=== PATIENT | female | born 1940 | race Caucasian/White ===

== ENCOUNTER 2023-08-25 06:26 | Inpatient (IN) | payer MEDICARE, SELFPAY ==
--- NOTE | 2023-07-21 10:01 | CM ---
Patient is scheduled for an elective R TKR on 08/25/23. Spoke with patient and her daughter prior to surgery via telephone. Introduced role of Orthopedic Navigator. Patient reports that she lives alone in a one story home. There are two steps to
enter. She currently functions independently and uses a rolling walker. She has no other DME and has never had VN services.
Discussed orthopedic program and post surgical plans. Reviewed anticipated length of stay and that goal is for her to return home at discharge. Patient's daughter states that she will stay with patient for as long as needed. Patient will need VN
services at discharge. Options and PAC data reviewed; patient selects [facility].
Patient will complete online education.
Plan: Orthopedic Navigator will remain available to assist with the care of patient and will reassess discharge needs after surgery.
[2023-08-05 13:07] VITALS: BMI 24.9
[2023-08-05 14:06] LABS: Hematocrit 41.9 % (37.0-47.0); Hemoglobin 13.9 g/dL (12.0-16.0); Mean Corp Hgb Conc. 33.2 g/dL (33.0-37.0); Mean Corpuscular Hgb 30.3 pg (27.0-31.0); Mean Corpuscular Volume 91.5 fL (81.0-99.0); Mean Platelet Volume 12.8 fL (7.4-10.4); Platelet Count 248 10^3/uL (130-400); Red Blood Cell Count 4.58 10^6/uL (4.20-5.40); Red Cell Dist. Width 14.6 % (11.5-14.5); White Blood Cell Count 6.7 10^3/uL (4.8-10.8)
[2023-08-05 14:18] LABS: ALT (SGPT) 12 U/L (0-35); AST (SGOT) 22 U/L (14-36); Albumin 4.7 g/dl (3.5-5.0); Alkaline Phosphatase 118 U/L (38-126); Blood Urea Nitrogen 15 mg/dl (7-17); Calcium 9.8 mg/dl (8.4-10.2); Carbon Dioxide 26 mmol/L (22-30); Chloride 102 mmol/L (98-107); Estimated Creatinine Clearance 48 ml/min; Glucose 92 mg/dl (70-99); Potassium 4.3 mmol/L (3.5-5.1); Sodium 139 mmol/L (135-145); Total Bilirubin 1.1 mg/dl (0.2-1.3); Total Protein 7.6 g/dl (6.3-8.2); eGFR > 60.00
[2023-08-05 15:17] VITALS: BMI 24.9
[2023-08-05 17:18] LABS: Free T4 0.77 ng/dl (0.78-2.19)
[2023-08-06 09:31] LABS: Glycohemoglobin (HgbA1c) 5.7 % (4.0-5.6)
[2023-08-25] VITALS (10 sets, daily range): BP systolic 134–209; BP diastolic 58–98; BMI 24.9
[2023-08-25] MEDS: TYLENOL 650 MG PO ×3 (10:47→19:46)
[2023-08-25] MEDS: CELEBREX 200 MG PO (10:55)
--- NOTE | 2023-08-25 11:22 | PTCARENOTE ---
Patients BP on arrival was 209/98. Per the [facility] & P patient was to start Lisinopril. Patient states that she told her pharmacy that she only wanted to fill the Mupirocin and had them put the Lisinopril prescription back. Dr. Estrada notified. Patient and
her daughter stated that the prescription was given by Dr. Sumaya Salgado at and [facility]. Dr. Collins also notified of patients BP and told him that Dr. Estrada would be notified also.
[2023-08-25] MEDS: NORMOSOL-R 1000 IV ×2 (11:32→16:20)
--- NOTE | 2023-08-25 12:28 | W.PN.UPDATE ---
Update Note
Progress Note Update
R knee OA s/p R TKA w/ Dr Jacques 08/25/23
DVT prophylaxis - Eliquis 2.5 mg PO BID x4 weeks (d/t ADR to Aspirin), b/l venous foot pumps
- Alternative: low dose enteric coated ASA w/ daily PPI should Eliquis be costly
HTN - labile pre-op d/t h/o medical non-compliance (was told by PCP to start Lisinopril daily and failed to do so)
- Start Lisinopril
- Will order Hydralazine for SBP >165 prn
- Ensure adequate pain control
- Monitor
GERD - add Pepcid HS
Hypothyroidism, asymptomatic - will start Levothyroxine post-op
Hypercholesterolemia, statin intolerant
Irritable bowel syndrome
Lactose intolerance
Glaucoma
Poor historian
Medical non-compliance
Prediabetes, A1c 5.7
Remote history of tobacco abuse
Due to her h/o medical non-compliance, the pt is considered to be at an increased risk of post-op infection. She will be prescribed Cefadroxil 500 mg PO BID upon d/c x1 week.
--- NOTE | 2023-08-25 15:55 | OR.RPT ---
Operative Report
Operative Report
Orthopaedic Surgery Operative Note
DATE OF OPERATION: 08/25/2023
PREOPERATIVE DIAGNOSES: Osteoarthritis, right knee.
POSTOPERATIVE DIAGNOSES: Osteoarthritis, right knee.
OPERATION PERFORMED: Right total knee arthroplasty (65281 with 22 modifier for complexity)
SURGEON: Tong Jacques MD
ASSISTANTS: Luis E Nicole who helped with patient and limb positioning and retraction
ANESTHESIA: General
COMPLICATIONS: None.
ESTIMATED BLOOD LOSS: 20mL
DRAINS: None
TOURNIQUET TIME: 61 minutes.
IMPLANTS:
- Haylee Persona PS Femur, size 9
- Haylee Persona tibia base plate, size E
- Haylee Persona short tibial stem, 30mm
- Haylee Persona CPS articular surface, 10 mm
- All-polyethylene patellar component, size 29
INDICATIONS: The patient presented to my office with debilitating right knee pain due to osteoarthritis. She had marked fixed varus deformity. We reviewed the natural history of this problem, as well as the risks, benefits, and alternatives of
various treatment options. The patient exhausted all nonoperative treatment options and wished to proceed with knee replacement surgery. The patient understood the risks which included, but were not limited to, bleeding, infection, failure to
relieve pain, more pain than preop, damage to blood vessels and nerves, need for reoperation, mechanical failure of the implants, wound healing problems, stiffness, instability, blood clot, pulmonary embolism, myocardial infarction, pneumonia,
arrhythmia, CVA, and . The patient accepted these risks and wished to proceed. All questions were answered, and informed consent was obtained.
PROCEDURE IN DETAIL: The patient was identified in the preoperative holding area. The right knee was identified as the operative site. The patient was taken in the operating room and placed in a supine position on the operating table. General
anesthesia was performed. IV antibiotics and tranexamic acid were administered. An SCD was placed on the left lower extremity. A well-padded tourniquet was placed on the proximal thigh. All bony prominences were well padded. The right lower
extremity was prepped and draped in the usual sterile fashion.
We performed a surgical time-out. An interarticular block was performed with local anesthetic with epinephrine. The limb was exsanguinated with an Esmarch bandage, then the tourniquet was inflated to 250 mmHg. A midline skin incision was made
followed by a medial parapatellar arthrotomy. A subperiosteal peel was performed on the medial tibia. I excised part of the infrapatellar fat pad to improve our visualization as well as tissue over anterior femur. The patella was everted and the
knee was flexed. I excised the remnants of the anterior and posterior cruciate ligaments as well as tibial and femoral osteophytes with rongeurs.
The knee was flexed, and the extramedullary tibial cutting guide was aligned. [place] was aligned at neutral, rotation was centered on the tibial tubercle, and coronal alignment was aligned with the mechanical axis of the tibia and center of the ankle
joint. The cut height was 2mm off the medial tibia joint surface. The guide was secured into place. The MCL and LCL were protected. The tibia surface was cut. The cut surface was inspected after removal to ensure appropriate height and slope based
on the preoperative plan. The cut was checked with a drop yecenia. It was centered nicely at the ankle.
A drill was used to open the femoral canal. The intramedullary distal femoral cutting guide was inserted into the femur. This was set at 5 degrees +0. This was secured into place with three pins. The cut level was checked with an meek wing. The
distal femur was cut through the cutting guide. The IM guide was reinserted to double check that the level of resection was flush and in appropriate alignment.
Aure�s line and the transepicondylar axis were marked on the femur. The femoral sizing guide was applied to the anterior femur. Pins were inserted, and the 4-in-1 cutting guide was applied and secured into place. The rotation was compared to
[place]�s line, the transepicondylar axis, and the neutral tibia cut and was found to be appropriate. The width was checked and found to be appropriate and lateralized on the femur. The anterior, posterior, and chamfur cuts were made. A lamina
mapping analyst was used to open the flexion gap, and posterior osteophytes were removed with a curved osteotome. The remnant medial and lateral meniscus were also removed. I prophylactically cauterized the lateral geniculate arteries.
A 10mm spacer block was applied to the flexion and extension gaps. The knee was markedly tight medially in both flexion and extension. There was downsloaping deformity to the proximal tibia medially from chronic varus remodeling. This section was
identified, and a medial tibial subtraction osteotomy was performed with a reciprocating saw. The MCL was protected with a Z retractor. Medial femoral osteophyte was removed from the medial femur as well. Once this was performed, the 10mmm spacer
block was reinserted. The knee was noted to be balanced medially and laterally. The knee was extended, and the block showed symmetric to extension and flexion gaps.
The tibia was exposed and sized. Rotation was set in line with the tibial tubercle and congruent with the femur. The trial was secured into place with two pins. The trial femur was impacted into place, and a trial articular surface was placed. The
knee was taken through range of motion and noted to be stable throughout the arc of motion without gaping or excess tension. In extension, a measured resection of the patella was performed. The patella was sized, and lug holes were drilled. A trial
patella component was applied, and it was noted to track centrally throughout the arc of motion without need for further releases.
The trials were removed. There was a contained synovial cyst in the posterior central aspect of the proximal tibia which was debrided. The tibia keel was prepared with the punch and the drill. The bone surfaces were irrigated with sterile saline and
dried. The cement was mixed in a vacuum mixer. Cement gun was used to apply cement to the tibial surface and the undersurface of the tibial implant. Cement was pressurized into the tibial canal and tibia surface. The tibial component was impacted
into place. Excess cement was removed. Cement was applied to the femoral surface and the femoral component. The femoral component was impacted into place, and excess cement removed. A trial articular surface was inserted, and the knee was extended
while the cement polymerized. The tourniquet was let down, and meticulous hemostasis was achieved. Dilute betadine was poured into the wound and allowed to soak for 3 minutes. The knee was irrigated with copious normal saline.
Once the cement was polymerized, the trial articular surface was removed. Any excess cement was removed. The knee was trialed, and the final articular surface was selected and inserted into the tibial locking mechanism. The knee was reduced. A fresh
drape was applied to the surgical field.
The arthrotomy was closed with 0-PDS. Once closed, an interarticular block was performed with local anesthetic with epi. The deep dermal layer was closed with 2-0 PDS, and the subcuticular skin was closed with 3-0 monocryl. A Dermabond Prineo
dressing was applied to the skin in full flexion. Once this was completely dry, a sterile waterproof dressing was applied.
The anesthesia team performed an adductor canal block in the OR. The patient awoke from anesthesia without any difficulties. The sponge and instrument counts were correct x2 at the end of the case.
Of note, 22 modifier was added for complexity due to the extreme coronoal deformity requiring 20 additional minutes for tibial osteotomy and extensive soft tissue releases to achieve balanced gaps
Jerson Jacques MD
[2023-08-25] MEDS: ROXICODONE 5 MG PO (16:20)
--- NOTE | 2023-08-25 17:20 | PTCARENOTE ---
Pt received from the PACU via bed. Transport was w/o incident. Pt is aaox3, HRR, lungs are decreased in the bases/clear, resp. easy. Pt with Silver Mepilex drsg to Right knee C/D/I, no drainage noted. Pt's VSS, Pt is afebrile. Pt instructed on plan
of care. Pt verbalized understanding of instructions. Call lyons is within reach.
[2023-08-25] MEDS: ZESTRIL 10 MG PO (18:00)
[2023-08-25] MEDS: ANCEF 5 IV (19:45)
[2023-08-25] MEDS: BACTROBAN 2% OINTMENT 1 APPLIC NASAL (19:45)
[2023-08-25] MEDS: SENOKOT 17.1999999999999993 MG PO (19:46)
[2023-08-25] MEDS: COLACE 100 MG PO (19:46)
[2023-08-25] MEDS: ELIQUIS 2.5 MG PO (19:46)
[2023-08-25] MEDS: PEPCID 20 MG PO (22:31)
[2023-08-25] MEDS: TYLENOL PO (23:38)
[2023-08-26 03:40] VITALS: BP 149/72
[2023-08-26] MEDS: TYLENOL PO ×3 (03:40→09:29)
[2023-08-26] MEDS: ANCEF 5 IV (03:42)
[2023-08-26] MEDS: DILAUDID IV (04:35)
[2023-08-26] MEDS: DILAUDID 0.5 MG IV (04:52)
[2023-08-26] MEDS: ATIVAN 2 MG SL (05:56)
--- NOTE | 2023-08-26 06:18 | PTCARENOTE ---
pt has saji forgettful and confused but woke up at 0430 very confused, agitated, paranoid, and combative. pt was trying to get OOB w/ foot pumps on. she would not listen to redirection but this RN or PCT. pt was yelling that 'we are trying to kill
her', and something 'about the garage and needing to get an substation electrician' pt started to hit and kick. bending her surgical leg and trying to kick this nurse in the head.
Informed BRUNILDA uriarte'alexandru orders for restraints. See MAR re: pain management
Informed Dr. Wilhelm obtain order for ativan for increased agitation w/ some effect.
[2023-08-26 07:10] VITALS: BP 105/63
[2023-08-26 08:29] LABS: Hematocrit 33.1 % (37.0-47.0); Mean Corp Hgb Conc. 33.2 g/dL (33.0-37.0); Mean Corpuscular Hgb 30.8 pg (27.0-31.0); Mean Corpuscular Volume 92.7 fL (81.0-99.0); Mean Platelet Volume 12.4 fL (7.4-10.4); Platelet Count 219 10^3/uL (130-400); Red Blood Cell Count 3.57 10^6/uL (4.20-5.40); White Blood Cell Count 14.8 10^3/uL (4.8-10.8)
[2023-08-26 08:44] LABS: Blood Urea Nitrogen 14 mg/dl (7-17); Calcium 9.4 mg/dl (8.4-10.2); Carbon Dioxide 24 mmol/L (22-30); Chloride 99 mmol/L (98-107); Estimated Creatinine Clearance 31 ml/min; Glucose 123 mg/dl (70-99); Potassium 3.8 mmol/L (3.5-5.1); Sodium 135 mmol/L (135-145); eGFR 49.86
[2023-08-26] MEDS: COLACE PO ×3 (09:25→19:52)
[2023-08-26] MEDS: SENOKOT PO ×3 (09:25→19:52)
[2023-08-26] MEDS: SYNTHROID PO ×2 (09:28→09:38)
[2023-08-26] MEDS: BACTROBAN 2% OINTMENT 1 APPLIC NASAL (09:29)
[2023-08-26] MEDS: ELIQUIS 2.5 MG PO (09:30)
[2023-08-26] MEDS: ZESTRIL PO (09:31)
[2023-08-26] MEDS: NSS 500 IV (09:32)
--- NOTE | 2023-08-26 11:19 | CM ---
Addendum entered by Cindy Joyce 08/26/23 15:04:
[facility] and [facility] are both able to offer a bed on Tuesday if patient is cleared for discharge and needs SNF.
Original Note:
Reviewed chart and held rounds with PT, OT and nursing. Patient admitted as planned for elective R TKR. Patient has been confused and agitated. Met with patient's daughter at bedside. Confirmed information previously obtained for assessment. Also
discussed discharge plans. Daughter states that her plan continues to be for patient to return home at discharge. She will stay with her for as long as needed. She is concerned though about patient's mental state and her ability to bring patient
home if she isn't at her baseline mentally and functionally at a level she can safely assist. Discussed option of SNF rehab if patient isn't able to return home and reviewed options and PAC data. She requested referrals to SNFs local to [place].
If able to go home, patient will need VN services. Reviewed start of care (currently 08/27), services to be ordered (PT, SN) and frequency/duration of services. Options list provided and PAC data reviewed. She selects VN.
Patient has a rolling walker at home.
Referral and completed PASRR were sent to [facility], [facility] and [facility] through [employer]
VN referral was completed and sent to [facility] through [employer] with request for start of care on 08/27. Confirmation received of their ability to accept case. meat counter clerk to fax discharge instructions to [facility] if patient goes home.
--- NOTE | 2023-08-26 11:38 | CON.HOSP ---
Family Physician
-
Family Physician: Sumaya Salgado MD,
Chief Complaint
-
Confusion postop
History of Present Illness
83 years old female was admitted for elective right knee surgical revision by orthopedic doctor. She underwent the procedure without complication and later developed delirium/confusion. Patient pulled her IV access and she refused to take her oral
medications. He was placed on restraint because she was trying to leave the bed.
I saw the patient in the room, she was confused, she was answering questions in noncoherent way. She could not follow commands. She had bilateral wrist restraint and 1 like restraint and despite that she was trying to leave the bed.
No fever. No pain issue. She was given narcotic yesterday postoperatively. Positive underlying history of mild cognitive impairment.
Medical History
Past Medical History
Past Medical History: Reports Other (According to records, hypothyroidism, hypertension)
Past Surgical History: Reports Other (No recent major abdominal surgery)
Social History
Unable to obtain full social history at this time due to: Dementia and Other (Confusion)
Family History
Family History: Unable to Obtain (Due to confusion)
Allergies / Home Medications
Allergies reflects when Allergies were last updated in [facility].
Home Medications with original date entered in [facility]
Allergy/Medication List:
Allergies
Allergy/AdvReac Type Severity Reaction Status Date / Time
lactose Allergy Nausea Verified 08/25/23 10:33
aspirin AdvReac Stomach Verified 08/25/23 10:33
Pain,
Heartburn
Home Medications
mupirocin 2 % topical ointment 1 applic intranasal BID #1 tube 08/05/23
Review of Systems
-
Unable to obtain full review of systems at this time due to: Dementia and Other (Confusion)
Physical Exam
Vital Signs
Vital Signs
Temp Pulse Resp BP Pulse Ox
98.4 F 106 18 105/63 95
08/26/23 07:10 08/26/23 07:10 08/26/23 07:10 08/26/23 07:10 08/26/23 07:10
Physical Exam
General: Other (Patient is restless in bed with restraints)
HEENT: Atraumatic
Respiratory: Clear
Cardiac: S1/S2 and Regular Rhythm
GI: Non Tender
Rectal: Negative Maroon Stools
Genito-urinary: Clear Urine
Musculoskeletal: No Edema
Skin: Negative Jaundice
Neuro: Other (Patient is disoriented, did not follow commands, not coherent sentences)
Psych: Agitated
Laboratory Results
-
Laboratory Results
08/26/23 08:15
08/26/23 08:15
Total Bilirubin 1.1 mg/dl (0.2-1.3) 08/05/23 11:49
AST 22 U/L (14-36) 08/05/23 11:49
ALT 12 U/L (0-35) 08/05/23 11:49
Alkaline Phosphatase 118 U/L (38-126) 08/05/23 11:49
Impression / Plan
-
IMPRESSION:
83 years old female presented for elective orthopedic surgery and became delirious after surgery
# Acute change in mental status
Acute delirium, possibly related to pain medication
Underlying mild cognitive impairment
Continue supportive care, restraint for protective measures
IV fluid
Aspiration precaution
Avoid opioids if possible
Control pain with Tylenol, if unable to take orally we can try rectal Tylenol
No signs of acute infection. No fevers.
Moving aimlessly in bed
Head the scan showed no acute intracranial abnormality but positive for age-related changes
Positive leukocytosis which could be reactive, will check urinalysis
#Severe right knee osteoarthritis, started post right total knee arthroplasty by Dr. Jacques on 08/24
No complications reported during surgery
Unable to take oral
Replace DVT prophylaxis with SQ Lovenox for now
# Acute kidney injury, creatinine 1.1. Baseline 0.7 in July 2023
Give IV fluid
Monitor for retention
# Primary hypertension. Unable to take lisinopril. Will replace IV hydralazine as needed
# Hypothyroidism, no changes intended
# CODE STATUS, DNR per living will, confirmed with daughter
Thank you for your consultation, we will follow the patient along with you
Total time spent to see the patient, examine the patient on the floor, review data and lab results, discuss treatment plan with patient, orthopedic doctor, nursing staff around 75 minutes.
[2023-08-26 12:05] VITALS: BP 158/67
--- NOTE | 2023-08-26 13:00 | W.PN.ORTHO ---
Today's Communication / Plan
-
Monitor cognition and agitation.
Await further recs from hospitalist service.
Work w/ PT and OT as able.
D/c when clinically stable.
Assessment
.
Distal Motor Intact: Yes
Dressing:
Clean, dry and intact.
Assessment:
R knee OA s/p R TKA w/ Dr Jacques 08/25/23
DVT prophylaxis - Eliquis 2.5 mg PO BID x4 weeks (d/t ADR to Aspirin), b/l venous foot pumps
- Pt's daughter to receive coupon for Eliquis
Confusion and agitation post-op - pt has cognitive deficits and is a poor historian at baseline
- ? undiagnosed dementia w/ ; confusion likely exacerbated by IV Dilaudid and Lorazepam overnight, GA yesterday (pt refused preferred spinal)
- CBC w/ mild leukocytosis - reactive from surgery, Decadron, and mild post-op anemia - will trend
- BMP w/ WHIT - would like to give IVF if pt accepts; did encourage oral hydration to daughter currently. Holding NSAIDs and Lisinopril. Repeat BMP in AM.
- Head CT negative for acute abnormalities
- Await UA w/ culture
- Continue restraints for now for patient's overall safety
- Minimize narcotics as able
- Consult hospitalist service for further recs. Did suggest consulting psych to daughter as well but she appeared apprehensive about this
HTN - labile pre-op d/t h/o medical non-compliance (was told by PCP to start Lisinopril daily and failed to do so)
- Initially started on Lisinopril but currently held d/t post-op WHIT; resume when safe to do so
- Ensure adequate pain control
GERD - continue Pepcid HS
Hypothyroidism, asymptomatic - attempted to start Levothyroxine post-op but pt refused
Hypercholesterolemia, statin intolerant
Irritable bowel syndrome
Lactose intolerance
Glaucoma
Poor historian
Medical non-compliance
Prediabetes, A1c 5.7
Remote history of tobacco abuse
Due to her h/o medical non-compliance, the pt is considered to be at an increased risk of post-op infection. She will be prescribed Cefadroxil upon discharge.
Plan
.
Surgery / Date: R TKA w/ Dr Jacques 08/25/23
DVT Prophylaxis: Other (Eliquis 2.5 mg PO BID x4 weeks )
Activity:
Out of bed.
PT/OT
Discharge Plan: Home w/ VN
Subjective
.
.:
Patient appearing to rest comfortably in bed this AM.
Increased confusion this AM with notable agitation overnight. Pt not agitated when talking with me today.
Vital Signs and Labs
.
Vital Signs and Labs:
Lab Results
08/26/23 08:15
08/26/23 08:15
Temp Pulse Resp BP Pulse Ox
98.4 F 87 18 158/67 94
08/26/23 07:10 08/26/23 12:05 08/26/23 12:05 08/26/23 12:05 08/26/23 12:05
Non-invasive Hgb result: 11.3
Physical Exam
-
HEENT: No pallor, cyanosis, or jaundice. Throat clear.
NECK: Supple. No JVD.
RESPIRATORY: Lungs clear to auscultation.
CVS: S1, S2 normal. RRR.�
ABDOMEN: Soft, non-tender. No distension.
EXTREMITIES: Strength equal, no reported or visible calf pain with palpation/dorsiflexion of feet. Calves soft.
QUENCHER OPERATOR: AOx2. Cognitive deficits at baseline but pt notably more confused.
[2023-08-26] MEDS: TYLENOL 650 MG PO (13:03)
[2023-08-26] MEDS: D5/0.9% SODIUM CHLORIDE 1000 IV (15:51)
[2023-08-26] MEDS: TYLENOL/FEVERALL RECTAL (15:52)
[2023-08-26 16:26] VITALS: BP 170/60
[2023-08-26] MEDS: LOVENOX 30 MG SC (19:48)
[2023-08-26] MEDS: BACTROBAN 2% OINTMENT NASAL (19:49)
[2023-08-26] MEDS: TYLENOL/FEVERALL 650 MG RECTAL (20:06)
[2023-08-27] VITALS (7 sets, daily range): BP systolic 113–135; BP diastolic 39–60; PULSE 77; O2SAT 97
[2023-08-27] MEDS: OFIRMEV 100 IV (03:17)
[2023-08-27] MEDS: D5/0.9% SODIUM CHLORIDE 1000 IV ×3 (03:17→22:33)
--- NOTE | 2023-08-27 07:23 | W.PN.ORTHO ---
Today's Communication / Plan
-
PT/OT
Eliquis/mechanical devices DVT prophylactics
Home with visiting nurses versus nursing home facility
Discussed with hospitalist (Navarro Galloway) this morning. All pain medication/benzos have been held and just doing Tylenol. She is also refusing IV fluids. She has been restrained and they are going to try to give her IV fluids and potentially Haldol.
Appreciate medical team's efforts
Assessment
.
Distal Motor Intact: Yes
Dressing:
Clean, dry and intact.
Plan
.
Surgery / Date: R TKA w/ Dr Jacques 08/25/23
DVT Prophylaxis: Other (Eliquis)
Activity:
Out of bed.
PT/OT
Discharge Plan: SNF
Subjective
.
.:
Patient resting comfortably. She is still confused but less agitated this morning.
Vital Signs and Labs
.
Vital Signs and Labs:
Temp Pulse Resp BP Pulse Ox
98.4 F 86 18 129/55 98
08/26/23 16:26 08/26/23 16:26 08/27/23 02:30 08/27/23 02:30 08/27/23 02:30
Non-invasive Hgb result: 8.6
[2023-08-27] MEDS: COLACE PO (08:51)
[2023-08-27] MEDS: TYLENOL/FEVERALL RECTAL (08:51)
[2023-08-27] MEDS: SENOKOT PO (08:51)
[2023-08-27] MEDS: SYNTHROID PO (08:51)
[2023-08-27 09:45] LABS: Hematocrit 27.9 % (37.0-47.0); Hemoglobin 9.5 g/dL (12.0-16.0); Mean Corp Hgb Conc. 34.1 g/dL (33.0-37.0); Mean Corpuscular Hgb 30.6 pg (27.0-31.0); Mean Platelet Volume 13.4 fL (7.4-10.4); Platelet Count 172 10^3/uL (130-400); Red Cell Dist. Width 13.8 % (11.5-14.5); White Blood Cell Count 8.3 10^3/uL (4.8-10.8)
--- NOTE | 2023-08-27 09:48 | W.PN.HOSP.TC ---
Today's Communication/Plan
-
.
Assessment / Plan
Assessment / Plan
Physical Exam
General: Other (Patient is restless in bed with restraints)
HEENT: Atraumatic
Respiratory: Clear
Cardiac: S1/S2 and Regular Rhythm
GI: Non Tender
Rectal: Negative Maroon Stools
Genito-urinary: Clear Urine
Musculoskeletal: No Edema
Skin: Negative Jaundice
Neuro: Other (Patient is disoriented, did not follow commands, not coherent sentences)
Psych: Agitated
83 years old female presented for elective orthopedic surgery and became delirious after surgery
# Acute change in mental status
Acute delirium, possibly related to pain medication with underlying mild cognitive impairment
She seems calm but disoriented this morning. 3 point restraints
Add PRN Risperdal for agitation
c/w IVF, encourage oral diet
Aspiration precaution
Avoid opioids if possible
Control pain with Tylenol, if unable to take orally we can try rectal Tylenol
No signs of acute infection. No fevers.
Moving aimlessly in bed
Head the scan showed no acute intracranial abnormality but positive for age-related changes
Positive leukocytosis which could be reactive.
#Severe right knee osteoarthritis, started post right total knee arthroplasty by Dr. Jacques on 08/24
No complications reported during surgery
c/w rectal Tylenol.
Replace DVT prophylaxis with SQ Lovenox for now
# Acute kidney injury, creatinine 1.1. Baseline 0.7 in July 2023
Refusing blood work
c/w IVF
Give IV fluid
Monitor for retention
# Primary hypertension. Unable to take lisinopril. Will replace IV hydralazine as needed
# Hypothyroidism, no changes intended
# CODE STATUS, DNR per living will, confirmed with daughter
Thank you for your consultation, we will follow the patient along with you
Total time spent to see the patient, examine the patient on the floor, review data and lab results, discuss treatment plan with patient, orthopedic service, nursing staff around 55 minutes.
Anticipated Discharge: 24 - 48 hours
Subjective/Interval History
-
Date of Service: August 27, 2023
Per nurse, pt refused oral medications and blood work
Objective Data
-
Labs:
Laboratory Results
08/27/23
09:05
WBC Pending
Hgb Pending
Hct Pending
Plt Count Pending
Sodium Pending
Potassium Pending
Chloride Pending
Carbon Dioxide Pending
BUN Pending
Creatinine Pending
Glucose Pending
Calcium Pending
Vital Signs:
Vital Signs
Temp Pulse Resp BP Pulse Ox
98.4 F 86 18 129/55 98
08/26/23 16:26 08/26/23 16:26 08/27/23 02:30 08/27/23 02:30 08/27/23 02:30
I&O
08/26/23 08/27/23 08/28/23
06:59 06:59 06:59
Intake Total 1450 / 1450 1500 / 1500
Output Total 0 / 0
Balance 1450 / 1450 1500 / 1500
--- NOTE | 2023-08-27 10:12 | CM ---
Addendum entered by GORGE Lou 08/27/23 16:37:
Met with dgtr. Reviewed Snf referrals, added [facility]. Probable d/c tuesday.
Off restraints this morning. [facility].
Original Note:
Patient remains on restraints today. No d/c to SNF until off restraints for 24 hours.
[2023-08-27 10:18] LABS: Blood Urea Nitrogen 13 mg/dl (7-17); Calcium 8.6 mg/dl (8.4-10.2); Carbon Dioxide 22 mmol/L (22-30); Chloride 105 mmol/L (98-107); Estimated Creatinine Clearance 48 ml/min; Glucose 115 mg/dl (70-99); Potassium 3.7 mmol/L (3.5-5.1); Sodium 134 mmol/L (135-145); eGFR > 60.00
--- NOTE | 2023-08-27 12:29 | PTCARENOTE ---
Pts daughter with concerns regarding pts food consumption during stay. Daughter updated that pt had decreased LOC and poor oral intake yesterday. PCT ordered breakfast for pt this am and pt set up with food by RN. Pt agitated towards staff this am
stating ' i can do this myself', RN/PCT did not stay to observe intake as to not further agitate pt, daughter verbalized understanding. RN/ PCT to assist pt with meals PRN. Care ongoing at this time.
[2023-08-27] MEDS: MOTRIN 200 MG PO (13:02)
[2023-08-27] MEDS: TYLENOL 1000 MG PO (17:11)
[2023-08-27] MEDS: LOVENOX 30 MG SC (17:12)
[2023-08-27] MEDS: SENOKOT 17.1999999999999993 MG PO (20:23)
[2023-08-27] MEDS: COLACE 100 MG PO (20:23)
[2023-08-28] MEDS: TYLENOL 1000 MG PO (04:03)
--- NOTE | 2023-08-28 04:39 | PTCARENOTE ---
Pt cooperative throughout shift, remain drowsy and confused, slept well. Cont for void, continues with poor po intake.
[2023-08-28] MEDS: SYNTHROID 25 MCG PO (05:49)
[2023-08-28 06:28] LABS: Hematocrit 21.9 % (37.0-47.0)
[2023-08-28 06:32] LABS: Hemoglobin 7.4 g/dL (12.0-16.0)
--- NOTE | 2023-08-28 06:58 | W.PN.ORTHO ---
Today's Communication / Plan
-
PT/OT
Eliquis for DVT prophylaxis
Weightbearing as tolerated
Continue to observe mental status today-she seems to have improved overnight
Hemoglobin dropped significantly overnight but examining her leg there is not significant bleeding/fluid in her leg to suggest significant blood loss so I will observe hemoglobin for now and if symptomatic may need blood transfusion
retirement facility once medically stable versus home with visiting nurses
Assessment
.
Distal Motor Intact: Yes
Dressing:
Clean, dry and intact.
Plan
.
Surgery / Date: R TKA w/ Dr Jacques 08/25/23
DVT Prophylaxis: Other (Eliquis)
Activity:
Out of bed.
PT/OT
Discharge Plan: SNF
Subjective
.
.:
Patient resting comfortably. Discussed with her nurse Cindy and overnight she seemed to be doing much better. She is still confused but no agitation. They have been encouraging hydration and her to eat. Pain seems to be controlled on Tylenol.
Restraints have been discontinued. Noninvasive hemoglobin this morning 7.1 and H&H draw showed hemoglobin 7.4. Her vital signs have been stable.
Vital Signs and Labs
.
Vital Signs and Labs:
Lab Results
08/27/23 09:05
Temp Pulse Resp BP Pulse Ox
99 F 78 16 116/53 96
08/27/23 22:38 08/27/23 22:38 08/27/23 22:38 08/27/23 22:38 08/27/23 22:38
Non-invasive Hgb result: 7.1
Physical Exam
-
Right leg is soft and nonpainful. No significant ecchymosis noted. No calf discomfort. Mild to moderate edema in the lower extremity.
Patient does not appear agitated this morning but is confused.
[2023-08-28 07:04] VITALS: BP 136/54
[2023-08-28] MEDS: SENOKOT 17.1999999999999993 MG PO (08:15)
[2023-08-28] MEDS: COLACE 100 MG PO (08:15)
[2023-08-28] MEDS: D5/0.9% SODIUM CHLORIDE 1000 IV (08:17)
--- NOTE | 2023-08-28 10:45 | W.PN.UPDATE ---
Update Note
Progress Note Update
I had a chance to speak to patient's daughter, Levi Lubin, and give her an update. Since I saw patient this morning her nurse relayed that she is doing significantly better. She is alert and oriented x 3. Her daughter has seen dramatic
improvement and her mother's mentation since yesterday. Presently she is working through physical therapy. I would like to see how she does today and recheck labs tomorrow. Levi and her mother has been talking to social work and they are
thinking potentially having a rehab stay for a week.
[2023-08-28 10:48] VITALS: BP 141/62; PULSE 89
--- NOTE | 2023-08-28 12:15 | W.PN.HOSP.TC ---
Today's Communication/Plan
-
.
Assessment / Plan
Assessment / Plan
Physical Exam
General: Other (Patient is restless in bed with restraints)
HEENT: Atraumatic
Respiratory: Clear
Cardiac: S1/S2 and Regular Rhythm
GI: Non Tender
Rectal: Negative Maroon Stools
Genito-urinary: Clear Urine
Musculoskeletal: No Edema
Skin: Negative Jaundice
Neuro: Other (Patient is disoriented, did not follow commands, not coherent sentences)
Psych: Agitated
83 years old female presented for elective orthopedic surgery and became delirious after surgery
# Acute change in mental status
Acute delirium, possibly related to pain medication with underlying mild cognitive impairment
Good clinical improvement
Seems able to follow commands, taking her pills and allowing care/physical therapy/blood work
Off restraints for 2 days now
Continue with PRN Risperdal for agitation, which she did not need so far
No need for further IV fluid, encourage oral diet
Aspiration precaution
Avoid opioids
Control pain with Tylenol.
No signs of acute infection. No fevers.
Head the scan showed no acute intracranial abnormality but positive for age-related changes
Positive leukocytosis which could be reactive. Resolved.
# Acute blood loss anemia, possible dilution also
Recommend blood transfusion if hemoglobin less than 7.5
Start on oral iron therapy
No hypotension. No dizziness
#Severe right knee osteoarthritis, started post right total knee arthroplasty by Dr. Jacques on 08/24
No complications reported during surgery
c/w Tylenol.
DVT prophylaxis with subcu Lovenox
# Acute kidney injury, creatinine 1.1. Baseline 0.7 in July 2023
Resolved. Creatinine back to 0.7
No flank pain. No hematuria
# Primary hypertension. Low normal.. Continue to hold lisinopril, continue with hydralazine as needed
# Hypothyroidism, no changes intended
# CODE STATUS, DNR per living will, confirmed with daughter
Thank you for your consultation, we will follow the patient along with you
Total time spent to see the patient, examine the patient on the floor, review data and lab results, discuss treatment plan with patient, orthopedic service, nursing staff around 57 minutes.
Anticipated Discharge: Within 24 hours
Subjective/Interval History
-
Date of Service: August 28, 2023
She is following commands, no agitation. Took her pills and allowed to blood work
Objective Data
-
Labs:
Laboratory Results
08/28/23 08/28/23
06:03 07:38
Hgb 7.4 L D Cancelled
Hct 21.9 L Cancelled
Vital Signs:
Vital Signs
Temp Pulse Resp BP Pulse Ox
98.4 F 82 17 136/54 94
08/28/23 07:04 08/28/23 07:04 08/28/23 07:04 08/28/23 07:04 08/28/23 11:00
I&O
08/27/23 08/28/23 08/29/23
06:59 06:59 06:59
Intake Total 1500 / 1500 1900 / 1900 1680 / 1680
Output Total 0 / 0 250 / 250
Balance 1500 / 1500 1900 / 1900 1430 / 1430
[2023-08-28 16:30] VITALS: BP 148/53
[2023-08-28] MEDS: COLACE PO ×2 (19:45→19:48)
[2023-08-28] MEDS: SENOKOT PO ×2 (19:45→19:48)
--- NOTE | 2023-08-28 20:52 | PTCARENOTE ---
Pt alert and oriented x3 at this time. Pleasant and cooperative. Rings call [facility] appropriately. Declined colace and rosalia crooks stating she has issues with colitis and is afraid it will give her diarrhea. States if she does not have BM tonight
will take doses in am.
[2023-08-28 23:18] VITALS: BP 170/84
--- NOTE | 2023-08-28 23:19 | PTCARENOTE ---
BP 170/84 but pt refused IV hydralazine
[2023-08-28 23:56] VITALS: BP 164/73
[2023-08-29] VITALS (11 sets, daily range): BP systolic 131–184; BP diastolic 61–80; PULSE 82–85; O2SAT 95–96
[2023-08-29] MEDS: MOTRIN 200 MG PO (03:21)
[2023-08-29 05:00] LABS: % Basophils 0.2 % (0-2); % Eosinophils 1.4 % (0-6); % Immature Granulocytes 0.3 % (0-0.5); % Lymphocytes 11.2 % (20.5-51.1); % Monocytes 10.9 % (1.7-9.3); Absolute Eosinophils 0.1 10^3/uL (0-0.7); Absolute Lymphocytes 0.7 10^3/uL (1.2-3.4); Absolute Monocytes 0.7 10^3/uL (0.1-0.6); Absolute Neutrophils 4.8 10^3/uL (1.4-6.5); Hematocrit 21.5 % (37.0-47.0); Hemoglobin 7.2 g/dL (12.0-16.0); Mean Corp Hgb Conc. 33.5 g/dL (33.0-37.0); Mean Corpuscular Hgb 30.4 pg (27.0-31.0); Mean Corpuscular Volume 90.7 fL (81.0-99.0); Mean Platelet Volume 13.3 fL (7.4-10.4); Nucleated Red Blood Cells % 0 %; Platelet Count 155 10^3/uL (130-400); Red Blood Cell Count 2.37 10^6/uL (4.20-5.40); Red Cell Dist. Width 13.8 % (11.5-14.5); White Blood Cell Count 6.3 10^3/uL (4.8-10.8)
[2023-08-29 05:23] LABS: Blood Urea Nitrogen 8 mg/dl (7-17); Calcium 8.1 mg/dl (8.4-10.2); Carbon Dioxide 23 mmol/L (22-30); Chloride 109 mmol/L (98-107); Estimated Creatinine Clearance 56 ml/min; Glucose 99 mg/dl (70-99); Potassium 3.5 mmol/L (3.5-5.1); Sodium 135 mmol/L (135-145); eGFR > 60.00
[2023-08-29] MEDS: FEOSOL 325 MG PO (08:17)
[2023-08-29] MEDS: SYNTHROID 25 MCG PO (08:17)
[2023-08-29] MEDS: SENOKOT 17.1999999999999993 MG PO (08:17)
[2023-08-29] MEDS: COLACE 100 MG PO ×2 (08:17→20:07)
[2023-08-29] MEDS: TYLENOL 1000 MG PO (08:20)
--- NOTE | 2023-08-29 08:33 | CM ---
Addendum entered by Cindy Joyce 08/29/23 12:22:
Message was received from daughter that [facility] is her first choice.
Message was received from [facility] that they are able to offer a bed. A covid test will be needed prior to discharge. Daughter updated.
Original Note:
Reviewed chart and held rounds with PT, OT and nursing. Met with patient at bedside and spoke with her daughter. Discussed discharge plans. The plan continues to be for patient to go to a SNF for rehab. Facilities of choice at this point are The
[facility], [facility], [facility] and [facility].
Referral and completed PASRR were sent to [facility] and [facility]. Updated information was sent to [facility] [place].
[facility] has accepted patient pending availability on day of discharge.
FORMERLY [facility] was notified that patient will be going to a SNF and referral was cancelled.
--- NOTE | 2023-08-29 10:13 | W.PN.HOSP.TC ---
Today's Communication/Plan
-
See the plan for transfusion
Lisinopril 5 mg daily
PT OT
Follow hemoglobin
IV iron
Assessment / Plan
Assessment / Plan
83 years old female presented for elective orthopedic surgery and became delirious after surgery
CVS: S1-S2 normal
Chest: CTA B/L
Abdomen: Soft, NT / Bowel sounds present
Extremities: Right knee edema and also edema in the thigh and leg
RESIDENT CARE TECHNICIAN: Non focal exam
# Acute change in mental status
Acute delirium, possibly related to pain medication with underlying mild cognitive impairment, postanesthesia
Good clinical improvement
Seems able to follow commands, taking her pills and allowing care/physical therapy/blood work
Off restraints
Continue with PRN Risperdal for agitation, which she did not need so far
Aspiration precaution
Avoid opioids
Control pain with Tylenol.
No signs of acute infection. No fevers.
Head the scan showed no acute intracranial abnormality but positive for age-related changes
Positive leukocytosis which could be reactive. Resolved.
# Acute blood loss anemia, postoperative
Patient is getting blood transfusion today. Ordered by orthopedics. Daughter aware
Iron deficiency noted. Will give IV iron
# Severe right knee osteoarthritis, started post right total knee arthroplasty by Dr. Jacques on 08/24
No complications reported during surgery
c/w Tylenol.
DVT prophylaxis with subcu Lovenox-Held due to drop in Hb
# Acute kidney injury, creatinine 1.1. Baseline 0.7 in July 2023
Resolved. Creatinine back to 0.7
# Primary hypertension. Low normal.. Several blood pressure readings have been high.
I will give her a low-dose of lisinopril 5 mg.
Discussed with patient's daughter. Per her patient has a prescription called in by the primary she will find out.
# Hypothyroidism, no changes intended.
Continue Synthroid 25 mcg daily
# Ex Smoker
# CODE STATUS, DNR, confirmed with daughter
# DVT prophylaxis- foot pumps . Lovenox on Hold due to bleeding.
Thank you for your consultation, we will follow the patient along with you
Discussed with patient's daughter
Discussed with nursing
Anticipated Discharge: Within 24 hours
Subjective/Interval History
-
Date of Service: August 29, 2023
Objective Data
-
Labs:
Laboratory Results
08/29/23
04:29
WBC 6.3
Hgb 7.2 L
Hct 21.5 L
Plt Count 155
Sodium 135
Potassium 3.5
Chloride 109 H
Carbon Dioxide 23
BUN 8
Creatinine 0.6
Glucose 99
Calcium 8.1 L
Vital Signs:
Vital Signs
Temp Pulse Resp BP Pulse Ox
97.5 F 75 18 184/75 98
08/29/23 08:35 08/29/23 08:35 08/29/23 08:35 08/29/23 08:35 08/29/23 08:35
I&O
08/28/23 08/29/23 08/30/23
06:59 06:59 06:59
Intake Total 1900 / 1900 2480 / 2480
Output Total 250 / 250
Balance 1900 / 1900 2230 / 2230
[2023-08-29 10:58] LABS: Iron 28 ug/dl (37-170)
[2023-08-29 11:07] LABS: Percent Saturation 16 % (20-50); Total Iron Binding Capacity 174 ug/dl (265-497)
[2023-08-29 11:53] LABS: Vitamin B12 800 pg/ml (239-931)
[2023-08-29] MEDS: FERRLECIT 110 MG IV (13:01)
[2023-08-29] MEDS: FLUSH (NSS) 1 FLUSH IV (13:05)
--- NOTE | 2023-08-29 14:39 | W.PN.ORTHO ---
Today's Communication / Plan
-
d/c in am if stable
Assessment
.
Distal Motor Intact: Yes
Dressing:
Clean, dry and intact.
Assessment:
Change mental status--resolved-likely secondary to anesthesia and opioid with underlying early dementia/possible sundowning
Acute post-op blood loss anemia-possible R knee hematoma-ecchymotic with large effusion-2Units PRBCs-Lasix b/w units for better BP control and to prveent fluid overload
Plan
.
Surgery / Date: R TKA w/ Dr Jacques 08/25/23
DVT Prophylaxis: Lovenox (would like to transition back to Eliquis 2.5mg bid now that she is medication compliant)
Activity:
Out of bed.
PT/OT
Discharge Plan: SNF
Subjective
.
.:
Patient resting comfortably.
Vital Signs and Labs
.
Vital Signs and Labs:
Lab Results
08/29/23 04:29
08/29/23 04:29
Temp Pulse Resp BP Pulse Ox
97.5 F 79 18 146/65 98
08/29/23 08:35 08/29/23 11:05 08/29/23 08:35 08/29/23 11:05 08/29/23 08:35
Non-invasive Hgb result: 7.1
Physical Exam
-
HEENT: No pallor, cyanosis, or jaundice. Throat clear.
NECK: Supple. No JVD.
RESPIRATORY: Lungs clear to auscultation.
CVS: S1, S2 normal. RRR.� No murmur, rub or gallop.
ABDOMEN: Soft, non-tender. No distension. BS+/normal.
EXTREMITIES: strength equal, no calf pain with palpation
STORAGE ARCHITECT: AOx3. No focal deficits. cafe attendant grossly intact
--- NOTE | 2023-08-29 14:53 | W.DS.TRANS ---
DC Summary - Vp Data
-
Discharge Instructions:
Sleep Apnea Risk Low
Discharge Diagnosis/Procedures R TKA w/ Dr Jacques 08/25/23
Diet Regular
Activity As tolerated,With Walker,With assistance
Driving Restrictions No driving
Bathing Restrictions OK to Shower
Other Services PT,VN,OT
Wound Care Leave dressing on until seen by surgeon's office
for follow-up in 2 weeks post-op date
Instructions:
Stand-Alone Forms: Total Hip/Knee Replacement D/C
Changes to Home Medications: Yes
Discharge Medications:
DC Medications w/original date entered in [email or web address]
mupirocin 2 % topical ointment 1 applic intranasal BID #1 tube 08/05/23
acetaminophen 325 mg capsule (Tylenol) 650 mg (2 x 325 mg) PO QID #2 caps 08/29/23
apixaban 2.5 mg tablet (Eliquis) 2.5 mg PO BID blood clot prevention #30 tabs 08/29/23
dexamethasone 4 mg tablet 4 mg PO BID inflammation #6 tabs 08/29/23
docusate sodium 100 mg capsule (Colace) 100 mg PO BID stool softner #1 cap 08/29/23
famotidine 20 mg tablet 20 mg PO HS GI prophylaxis #30 tabs 08/29/23
magnesium hydroxide 400 mg/5 mL oral suspension (Milk of Magnesia) 30 ml PO HS PRN Constipation #1 mL 08/29/23
sennosides 8.6 mg tablet (Senokot) 17.2 mg (2 x 8.6 mg) PO BID laxative #2 tabs 08/29/23
tramadol 50 mg tablet 25 mg (1/2 x 50 mg) PO Q6H PRN moderate-severe pain #10 tabs 08/29/23
Lisinopril 10mg daily
Levothyroxine 25Mcg daily
Home Medication Changes
apixaban 2.5 mg tablet (Eliquis) 2.5 mg PO BID blood clot prevention #30 tabs 08/29/23
dexamethasone 4 mg tablet 4 mg PO BID inflammation #6 tabs 08/29/23
famotidine 20 mg tablet 20 mg PO HS GI prophylaxis #30 tabs 08/29/23
tramadol 50 mg tablet 25 mg (1/2 x 50 mg) PO Q6H PRN moderate-severe pain #10 tabs 08/29/23
Lisinopril 10mg daily
Levothyroxine 25Mcg daily
Pending Results: No
[2023-08-29] MEDS: SENOKOT PO ×2 (20:07→20:11)
[2023-08-29] MEDS: LASIX 40 MG IV (20:54)
[2023-08-29] MEDS: APRESOLINE 5 MG IV (22:29)
[2023-08-30] VITALS (7 sets, daily range): BP systolic 126–177; BP diastolic 63–85; PULSE 87–94; O2SAT 96
--- NOTE | 2023-08-30 02:44 | PTCARENOTE ---
blood transfusion finished. Pt experienced no adverse reactions. VSS.
[2023-08-30] MEDS: APRESOLINE 5 MG IV ×2 (04:42→16:10)
[2023-08-30 05:54] LABS: Hematocrit 33.7 % (37.0-47.0); Mean Corp Hgb Conc. 35.6 g/dL (33.0-37.0); Mean Corpuscular Hgb 31.7 pg (27.0-31.0); Mean Corpuscular Volume 89.2 fL (81.0-99.0); Mean Platelet Volume 12.9 fL (7.4-10.4); Platelet Count 193 10^3/uL (130-400); Red Blood Cell Count 3.78 10^6/uL (4.20-5.40); Red Cell Dist. Width 13.5 % (11.5-14.5); White Blood Cell Count 7.7 10^3/uL (4.8-10.8)
[2023-08-30] MEDS: SYNTHROID 25 MCG PO (06:02)
[2023-08-30 06:27] LABS: ALT (SGPT) 46 U/L (0-35); AST (SGOT) 59 U/L (14-36); Albumin 3.4 g/dl (3.5-5.0); Alkaline Phosphatase 239 U/L (38-126); Blood Urea Nitrogen 12 mg/dl (7-17); Calcium 8.7 mg/dl (8.4-10.2); Carbon Dioxide 26 mmol/L (22-30); Chloride 104 mmol/L (98-107); Estimated Creatinine Clearance 56 ml/min; Glucose 104 mg/dl (70-99); Potassium 3.6 mmol/L (3.5-5.1); Sodium 136 mmol/L (135-145); Total Bilirubin 2.8 mg/dl (0.2-1.3); Total Protein 5.9 g/dl (6.3-8.2); eGFR > 60.00
--- NOTE | 2023-08-30 09:14 | W.PN.ORTHO ---
Today's Communication / Plan
-
d/c
Assessment
.
Distal Motor Intact: Yes
Dressing:
Clean, dry and intact.
Assessment:
Change mental status--resolved-likely secondary to anesthesia and opioid with underlying early dementia/possible sundowning-continue to minimize opioids-cognitive function currently at baseline
Acute post-op blood loss anemia-possible R knee hematoma-ecchymotic with large effusion-2Units PRBCs-Lasix b/w units for better BP control and to prevent fluid overload--hgb improved
TJX-rmfpproo-whrlu function at baseline
Hypothyroid-continue Levothyroxine-repeat TSH OP
NRF-Rbdxrhsdrc-FK improved
Elevated transaminase d/c Tylenol---US abd
Plan
.
Surgery / Date: R TKA w/ Dr Jacques 08/25/23
DVT Prophylaxis: Other (Eliquis 2.5mg bid)
Activity:
Out of bed.
PT/OT
Discharge Plan: SNF
Subjective
.
.:
Patient resting comfortably.
Vital Signs and Labs
.
Vital Signs and Labs:
Lab Results
08/30/23 05:02
08/30/23 05:02
Temp Pulse Resp BP Pulse Ox
98.0 F 95 18 152/79 97
08/30/23 07:00 08/30/23 07:00 08/30/23 07:00 08/30/23 07:00 08/30/23 07:00
Non-invasive Hgb result: 11.3
Physical Exam
-
HEENT: No pallor, cyanosis, or jaundice. Throat clear.
NECK: Supple. No JVD.
RESPIRATORY: Lungs clear to auscultation.
CVS: S1, S2 normal. RRR.� No murmur, rub or gallop.
ABDOMEN: Soft, non-tender. No distension. BS+/normal.
EXTREMITIES: strength equal, no calf pain with palpation
NURSE AIDE EVALUATOR: AOx3. No focal deficits. audio video mechanic 2-12 intact
--- NOTE | 2023-08-30 09:23 | W.DS.TRANS ---
DC Summary - Charge Gang Weigher
-
Discharge Instructions:
Sleep Apnea Risk Low
Discharge Diagnosis/Procedures R TKA w/ Dr Jacques 08/25/23
Diet Regular
Activity As tolerated,With Walker,With assistance
Driving Restrictions No driving
Bathing Restrictions OK to Shower
Blood Work TSH 12weeks
Others Tests --she will need Rxs when d/c home for Lisinopril
and Levothyroxine
Other Services PT,VN,OT
Wound Care Leave dressing on until seen by surgeon's office
for follow-up in 2 weeks post-op date
Instructions:
Stand-Alone Forms: Total Hip/Knee Replacement D/C
Changes to Home Medications: Yes
Discharge Medications:
DC Medications w/original date entered in [employer]
apixaban 2.5 mg tablet (Eliquis) 2.5 mg PO BID blood clot prevention #30 tabs 08/29/23
dexamethasone 4 mg tablet 4 mg PO BID inflammation #6 tabs 08/29/23
docusate sodium 100 mg capsule (Colace) 100 mg PO BID stool softner #1 cap 08/29/23
famotidine 20 mg tablet 20 mg PO HS GI prophylaxis #30 tabs 08/29/23
levothyroxine 25 mcg tablet 25 mcg PO DAILY 08/29/23
lisinopril 10 mg PO DAILY 08/29/23
magnesium hydroxide 400 mg/5 mL oral suspension (Milk of Magnesia) 30 ml PO HS PRN Constipation #1 mL 08/29/23
sennosides 8.6 mg tablet (Senokot) 17.2 mg (2 x 8.6 mg) PO BID laxative #2 tabs 08/29/23
tramadol 50 mg tablet 25 mg (1/2 x 50 mg) PO Q6H PRN moderate-severe pain #10 tabs 08/29/23
Home Medication Changes
apixaban 2.5 mg tablet (Eliquis) 2.5 mg PO BID blood clot prevention #30 tabs 08/29/23
dexamethasone 4 mg tablet 4 mg PO BID inflammation #6 tabs 08/29/23
famotidine 20 mg tablet 20 mg PO HS GI prophylaxis #30 tabs 08/29/23
levothyroxine 25 mcg tablet 25 mcg PO DAILY 08/29/23
lisinopril 10 mg PO DAILY 08/29/23
tramadol 50 mg tablet 25 mg (1/2 x 50 mg) PO Q6H PRN moderate-severe pain #10 tabs 08/29/23
Pending Results: Yes
Additional Pending Results:
US abdomen
[2023-08-30] MEDS: SENOKOT 17.1999999999999993 MG PO ×2 (09:28→21:20)
[2023-08-30] MEDS: FEOSOL 325 MG PO (09:28)
[2023-08-30] MEDS: COLACE 100 MG PO ×2 (09:28→21:20)
[2023-08-30] MEDS: ZESTRIL 10 MG PO (09:29)
--- NOTE | 2023-08-30 09:52 | CM ---
Reviewed chart and held rounds with PT, OT and nursing. Met with patient at bedside. Discussed discharge plans. The plan continues to be for patient to go to a SNF for rehab. [facility] is facility of choice.
Spoke with Sheryl at [facility]. She confirms their ability to accept patient. Covid test will be needed prior to discharge.
Report: [phone]

Medical necessity and transport forms completed.
--- NOTE | 2023-08-30 09:57 | CON.GI ---
Addendum entered and electronically signed by Brenda Rueda DO 08/30/23 15:54:
Patient seen and examined independently of MARTY. I agree with her note with my additions below
Dulce is an 83-year-old female with history of hypertension who underwent elective total knee replacement on 08/25/2023 for osteoarthritis. Postop she did have severe change in mental status, WHIT, anemia with a hemoglobin dropped to 7.2. This
morning and she had elevated liver enzymes but no abdominal pain. She underwent an ultrasound that showed cholelithiasis without acute cholecystitis and significant ductal dilatation with choledocholithiasis. Still no abdominal pain, no nausea or
vomiting. Bilirubin 2.8, AST 59, ALT 46, alkaline phosphatase 239. She has no fever, no leukocytosis. She is currently in the chair with her daughter at bedside.
# Choledocholithiasis-patient is asymptomatic but findings on ultrasound and liver enzymes that are consistent with CBD blockage
--- Plans were to take patient for ERCP today for removal of the stones however despite a 45-minute conversation with the patient and daughter she refuses the procedure. She is aware of the risks and benefits of this procedure and the alternatives.
The risks of not performing the procedure are infection, sepsis, bacteremia and even . She is willing to take those risks at this time.
-- She does appear to have capacity to make these decisions as she reiterated the risks to me. Her daughter is somewhat concerned about her capacity to make high-level decisions.
Plan--- will start diet. Will recheck CBC and LFTs in the morning. Make her n.p.o. after midnight just in case she is willing to undergo the procedure.
-- Could potentially plan for outpatient ERCP in the very near future but patient has to be aware there are significant risks in the interim.
Spent over 60 minutes with the patient, chart, family, phone
Original Note:
Consultation
-
Date/Time Consultation Requested: 08/30/23929
Date/Time Consultation Performed: 08/30/23939
Requesting Provider: Roly Kline MD
Performing Provider: MARTY Ortega, Brenda Rueda, DO
Reason for Consultation: abnormal US concern for CBD stones
Medical History
Chief Complaint / HPI
History of Present Illness:
Pt is an 83yo with hx HTN, hypothyroidism present for elective TKR 08/24 for severe osteoarthritis. She was noted with post-op change in mental status, transient WHIT with creat up to 1.1, anemia with drop in hbg to 7.2 and also elevated LFT's.
Baseline labs 08/04 with bili 1.1, AST 22, ALT 12, alk phos 118. Repeat today with bili 2.8, AST 59, ALT 46, alk phos 239. She completed US this am with concern for 1. Cholelithiasis without evidence of acute cholecystitis.2. Significant biliary
ductal dilation. Common bile duct measures 8 mm in diameter. 3. Multiple stones are seen within the common bile duct, measuring up to 1 cm in diameter.
Pt currently denies dysphagia, GERD, nausea, vomiting, abdominal pain or post prandial pain, diarrhea, constipation or rectal bleeding.
Past Medical History
Past Medical History: HTN, Hypothyroidism and Other (prior tobacco use, osteoarthritis )
Past Surgical History: Orthopedic (right TKR 08/25/23 )
Social History
Tobacco: Former Smoker (quit many years ag)
Alcohol: Former (social quit many years ago)
Drug: None
Living: Alone
Employment: Retired
Family History
Family History: Other (aunt with breast CA no family hx colon cA or polyps)
Allergies / Home Medications
Allergy/AdvReac Type Severity Reaction Status Date / Time
lactose Allergy Nausea Verified 08/25/23 10:33
aspirin AdvReac Stomach Verified 08/25/23 10:33
Pain,
Heartburn
�Medication �Instructions �Recorded
mupirocin 2 % topical ointment 1 applic intranasal BID #1 tube 08/05/23
apixaban 2.5 mg tablet (Eliquis) 2.5 mg PO BID blood clot 08/29/23
prevention #30 tabs
dexamethasone 4 mg tablet 4 mg PO BID inflammation #6 tabs 08/29/23
docusate sodium 100 mg capsule 100 mg PO BID stool softner #1 cap 08/29/23
(Colace)
famotidine 20 mg tablet 20 mg PO HS GI prophylaxis #30 tabs 08/29/23
levothyroxine 25 mcg tablet 25 mcg PO DAILY 08/29/23
lisinopril 10 mg PO DAILY 08/29/23
magnesium hydroxide 400 mg/5 mL 30 ml PO HS PRN Constipation #1 mL 08/29/23
oral suspension (Milk of Magnesia)
sennosides 8.6 mg tablet (Senokot) 17.2 mg (2 x 8.6 mg) PO BID 08/29/23
laxative #2 tabs
tramadol 50 mg tablet 25 mg (1/2 x 50 mg) PO Q6H PRN 08/29/23
moderate-severe pain #10 tabs
Review of Systems
-
History Source: Patient and Family
Constitutional: Reports No Symptoms
EENT: Reports No Symptoms
Respiratory: Reports No Symptoms
Cardiac: Reports No Symptoms
Abdomen/GI: Reports No Symptoms
: Reports No Symptoms
Musculoskeletal: Reports Other (s/p TKR with some post- op swelling)
Skin: Reports No Symptoms
Neurological: Reports Weakness
Endocrine: Reports No Symptoms
Hematologic/Lymphatic: Reports No Symptoms
Vital Signs
Temp Pulse Resp BP Pulse Ox
98.0 F 89 18 191/76 97
08/30/23 07:00 08/30/23 09:29 08/30/23 07:00 08/30/23 09:29 08/30/23 07:00
Physical Exam
Exam
General: Well Developed, Well Nourished and No Apparent Distress
HEENT: Normocephalic and Anicteric
Respiratory: Clear
Cardiac: Regular Rhythm
GI: Soft, Non Tender and Non Distended
Musculoskeletal: No Clubbing and No Cyanosis
Skin: Warm and Dry
Neuro: Awake, Alert and AO x 3
Psych: Calm
Results
WBC 7.7 10^3/uL (4.8-10.8) 08/30/23 05:02
Hgb 12.0 g/dL (12.0-16.0) D 08/30/23 05:02
Hct 33.7 % (37.0-47.0) L 08/30/23 05:02
MCV 89.2 fL (81.0-99.0) 08/30/23 05:02
Plt Count 193 10^3/uL (130-400) D 08/30/23 05:02
Absolute Neuts (auto) 4.8 10^3/uL (1.4-6.5) 08/29/23 04:29
Sodium 136 mmol/L (135-145) 08/30/23 05:02
Potassium 3.6 mmol/L (3.5-5.1) 08/30/23 05:02
Chloride 104 mmol/L (98-107) 08/30/23 05:02
Carbon Dioxide 26 mmol/L (22-30) 08/30/23 05:02
BUN 12 mg/dl (7-17) 08/30/23 05:02
Creatinine 0.6 mg/dL (0.6-1.0) 08/30/23 05:02
Calcium 8.7 mg/dl (8.4-10.2) 08/30/23 05:02
Total Bilirubin 2.8 mg/dl (0.2-1.3) H 08/30/23 05:02
AST 59 U/L (14-36) H 08/30/23 05:02
ALT 46 U/L (0-35) H 08/30/23 05:02
Alkaline Phosphatase 239 U/L (38-126) H 08/30/23 05:02
Diagnostic Image Results:
08/30/23 US abdomen
1. Cholelithiasis without evidence of acute cholecystitis.
2. Significant biliary ductal dilation. Common bile duct measures 8 mm in diameter.
3. Multiple stones are seen within the common bile duct, measuring up to 1 cm in diameter.
Prior GI Procedures:
EGD: none
Colonoscopy: none
Assessment / Plan
-
Pt is an 83yo with hx HTN, hypothyroidism present for elective TKR 08/24 for severe osteoarthritis. She was noted with post-op change in mental status, transient WHIT with creat up to 1.1, anemia with drop in hbg to 7.2 and also elevated LFT's.
Baseline labs 08/04 with bili 1.1, AST 22, ALT 12, alk phos 118. Repeat today with bili 2.8, AST 59, ALT 46, alk phos 239. She completed US this am with concern for 1. Cholelithiasis without evidence of acute cholecystitis.2. Significant biliary
ductal dilation. Common bile duct measures 8 mm in diameter. 3. Multiple stones are seen within the common bile duct, measuring up to 1 cm in diameter.
-elevated LFT's
-CBD stones with ductal dilation- asymptomatic
-s/p TKR 08/24
-confusion/agitation post op
-post-op anemia
other medical problems:
-cholelithiasis
-transient WHIT
-hypothyroidism
-HTN with some elevated BP on admission
PLAN:
reviewed US finding with patient and daughter at length
reviewed recommendation for ERCP -- risk including and not limited to bleeding, infection, perforation, reaction to medication, pancreatitis vs other
also reviewed risk of not proceeding with ERCP including bacteremia, abdominal pain, sepsis etc
possible ERCP later today vs tomorrow if patient agreeable
cont NPO
pt and daughter considering options
I have requested anesthesia to review with patient and family for concern for recent agitation/confusion post TKR recently done on 08/24 after daughter comes at 2 pm
Eliquis last dose 08/25 for post TKR use to resume on discharge
cont bowel regiment
to recheck BP as 190 this am and review with Dr. Lehman if still elevated for treatment prior to procedure
trend LFT's
trend hbg with anemia s/p IV iron
OP surgical consult to review for elvin with large stone noted on US
-
-
Thank you for consultation and allowing me to participate in the patient's care. Please call the excellence consultant GI physician during the after hours with any questions or concerns.
[2023-08-30 10:06] LABS: COVID-19 Antigen Negative (Negative)
--- NOTE | 2023-08-30 10:40 | W.PN.HOSP.TC ---
Today's Communication/Plan
-
GI eval
Possible ERCP today
Assessment / Plan
Assessment / Plan
83 years old female presented for elective orthopedic surgery and became delirious after surgery
Denies any pain , nausea or vomiting
CVS: S1-S2 normal
Chest: CTA B/L
Abdomen: Soft, No RUQ tenderness,Bowel sounds present
Extremities: Right knee edema and also edema in the thigh and leg
ROTOPRINTER: Non focal exam
#Elevated :LFT- CBD stones and gall stones
LFTS normal on 08/04/23.
GI consulted.
Needs ERCP
Risks and benefits and alternate options like waiting , but may get sepsis leaving stone in.
Pt/ daughter to discuss with anesthesia
# Acute change in mental status
Acute delirium, possibly related to pain medication with underlying mild cognitive impairment, postanesthesia
Good clinical improvement
Seems able to follow commands, taking her pills and allowing care/physical therapy/blood work
Off restraints
Continue with PRN Risperdal for agitation, which she did not need so far
Aspiration precaution
Avoid opioids
Head the scan showed no acute intracranial abnormality but positive for age-related changes
If she needs anesthesia for ERCP
# Acute blood loss anemia, postoperative
S/P 2 units of blood
Hb stable
Iron deficiency noted. IV iron
OP GI W/U
# Severe right knee osteoarthritis, started post right total knee arthroplasty by Dr. Jacques on 08/24
No complications reported during surgery
DVT prophylaxis with subcu Lovenox
Restart
# Acute kidney injury, creatinine 1.1. Baseline 0.7 in July 2023
Resolved. Creatinine back to 0.7
# Primary hypertension. Low normal.. Several blood pressure readings have been high.
Lisinopril 10 mg
# Hypothyroidism, no changes intended.
Continue Synthroid 25 mcg daily
# Ex Smoker
# CODE STATUS, DNR, confirmed with daughter
# DVT prophylaxis- Lovenox
Thank you for your consultation, we will follow the patient along with you
Discussed with patient's daughter re the CBD stone
Discussed with nursing
D/W Case management
D/W GI
Time spent 52 min
Anticipated Discharge: Within 24 hours
Subjective/Interval History
-
Date of Service: August 30, 2023
Objective Data
-
Labs:
Laboratory Results
08/30/23
05:02
WBC 7.7
Hgb 12.0 D
Hct 33.7 L
Plt Count 193 D
Sodium 136
Potassium 3.6
Chloride 104
Carbon Dioxide 26
BUN 12
Creatinine 0.6
Glucose 104 H
Calcium 8.7
Total Bilirubin 2.8 H
AST 59 H
ALT 46 H
Alkaline Phosphatase 239 H
Vital Signs:
Vital Signs
Temp Pulse Resp BP Pulse Ox
98.0 F 89 18 191/76 97
08/30/23 07:00 08/30/23 09:29 08/30/23 07:00 08/30/23 09:29 08/30/23 07:00
I&O
08/29/23 08/30/23 08/31/23
06:59 06:59 06:59
Intake Total 2480 / 2480 1460 / 1460
Output Total 250 / 250 2425 / 2425
Balance 2230 / 2230 -965 / -965
[2023-08-30] MEDS: D5/0.9% SODIUM CHLORIDE 1000 IV (11:48)
[2023-08-30 12:08] LABS: INR 1.07; PT 13.7 Sec (11.4-14.6)
[2023-08-30 14:31] LABS: Hemoglobin 12.3 g/dL (12.0-16.0)
[2023-08-30 15:10] LABS: ALT (SGPT) 44 U/L (0-35); AST (SGOT) 55 U/L (14-36); Albumin 3.8 g/dl (3.5-5.0); Alkaline Phosphatase 261 U/L (38-126); Direct Bilirubin 0.5 mg/dl (0.0-0.4); Total Bilirubin 3.1 mg/dl (0.2-1.3); Total Protein 6.4 g/dl (6.3-8.2)
--- NOTE | 2023-08-30 15:55 | W.PN.UPDATE ---
Update Note
Progress Note Update
for billing purposes
[2023-08-30] MEDS: FERRLECIT 110 MG IV (16:10)
[2023-08-30] MEDS: FLUSH (NSS) 2 FLUSH IV (16:11)
[2023-08-30] MEDS: LOVENOX SC (18:16)
[2023-08-31 04:55] LABS: Hematocrit 31.2 % (37.0-47.0); Hemoglobin 11.1 g/dL (12.0-16.0)
[2023-08-31 05:21] LABS: ALT (SGPT) 32 U/L (0-35); AST (SGOT) 36 U/L (14-36); Albumin 3.2 g/dl (3.5-5.0); Alkaline Phosphatase 198 U/L (38-126); Blood Urea Nitrogen 16 mg/dl (7-17); Calcium 8.8 mg/dl (8.4-10.2); Carbon Dioxide 27 mmol/L (22-30); Chloride 100 mmol/L (98-107); Estimated Creatinine Clearance 56 ml/min; Glucose 98 mg/dl (70-99); Potassium 3.5 mmol/L (3.5-5.1); Sodium 135 mmol/L (135-145); Total Bilirubin 2.4 mg/dl (0.2-1.3); Total Protein 5.5 g/dl (6.3-8.2); eGFR > 60.00
[2023-08-31] MEDS: SYNTHROID 25 MCG PO (06:19)
[2023-08-31 07:00] VITALS: BP 144/59
[2023-08-31] MEDS: ZESTRIL 10 MG PO (08:52)
[2023-08-31] MEDS: FEOSOL 325 MG PO (08:52)
[2023-08-31] MEDS: COLACE PO (08:53)
[2023-08-31] MEDS: SENOKOT PO (08:53)
--- NOTE | 2023-08-31 09:02 | W.PN.HOSP.TC ---
Today's Communication/Plan
-
Liver functions have improved
Possibly patient passed stones or stones causing intermittent obstruction. Patient is completely asymptomatic. She still does not want to get ERCP or any procedures for the gallstones. Aware about complications.
Called daughter
went to message
OK for discharge
OP Follow up with GI and Surgeon if patient wishes to get ERCP/cholecystectomy
Patient is also aware that if she ever develops jaundice, fever, abdominal pain she needs immediate medical attention.
Assessment / Plan
Assessment / Plan
83 years old female presented for elective orthopedic surgery and became delirious after surgery
Denies any pain , nausea or vomiting
CVS: S1-S2 normal
Chest: CTA B/L
Abdomen: Soft, No RUQ tenderness,Bowel sounds present
Extremities: Right knee edema and also edema in the thigh and leg
LIQUOR BRIDGE OPERATOR HELPER: Non focal exam
#Elevated :LFT- CBD stones and gall stones
LFTS normal on 08/04/23.
Patient still does not want to get ERCP. She is aware about possible obstruction causing pain, infection, sepsis all could happen if the stones were left alone.
LFTs are normalizing now except for slightly elevated bilirubin and alkaline phosphatase. Likely intermittent obstruction causing symptoms of elevated LFT. Patient asymptomatic in terms of any clinical symptoms.
# Acute change in mental status
Acute delirium, possibly related to pain medication with underlying mild cognitive impairment, postanesthesia
Good clinical improvement
Seems able to follow commands, taking her pills and allowing care/physical therapy/blood work
Off restraints
Continue with PRN Risperdal for agitation, which she did not need so far
Aspiration precaution
Avoid opioids
Head the scan showed no acute intracranial abnormality but positive for age-related changes
# Acute blood loss anemia, postoperative
S/P 2 units of blood
Hb stable
Iron deficiency noted. IV iron
OP GI W/U
# Severe right knee osteoarthritis, started post right total knee arthroplasty by Dr. Jacques on 08/24
No complications reported during surgery
DVT prophylaxis with subcu Lovenox. Restarted
# Acute kidney injury, creatinine 1.1. Baseline 0.7 in July 2023
Resolved. Creatinine back to 0.6
# Primary hypertension. Low normal.. Several blood pressure readings have been high.
Lisinopril 10 mg
# Hypothyroidism, no changes intended.
Continue Synthroid 25 mcg daily
# Ex Smoker
# CODE STATUS, DNR, confirmed with daughter
# DVT prophylaxis- Lovenox
Discussed with nursing
D/W Case management
D/W GI
Anticipated Discharge: Today
Subjective/Interval History
-
Date of Service: August 31, 2023
Objective Data
-
Labs:
Laboratory Results
08/31/23
04:07
Hgb 11.1 L
Hct 31.2 L
Sodium 135
Potassium 3.5
Chloride 100
Carbon Dioxide 27
BUN 16
Creatinine 0.6
Glucose 98
Calcium 8.8
Total Bilirubin 2.4 H
AST 36
ALT 32
Alkaline Phosphatase 198 H
Vital Signs:
Vital Signs
Temp Pulse Resp BP Pulse Ox
98.7 F 81 12 144/59 94
08/31/23 07:00 08/31/23 07:00 08/31/23 07:00 08/31/23 07:00 08/31/23 07:00
I&O
08/30/23 08/31/23 09/01/23
06:59 06:59 06:59
Intake Total 1460 / 1460 120 / 120
Output Total 2425 / 2425
Balance -965 / -965 120 / 120
--- NOTE | 2023-08-31 09:16 | W.PN.GI.CBS2 ---
Addendum entered and electronically signed by Brenda Rueda DO 08/31/23 10:24:
Patient seen and examined independently of FEED INSPECTION SUPERVISOR. I agree with her note with my additions below
Patient denies any fever, chills, abdominal pain. She is eating breakfast. She still declines to proceed with the ERCP.
She can vocalize the risks including bacteremia, sepsis, and she is willing to accept that risk.
Ideally get repeat LFTs and an ultrasound in a couple of weeks and follow-up in the office. She is aware if she develops any fever or abdominal pain she needs to come right back to the hospital for an ERCP
Micki spoke to the daughter.
I discussed this with the hospitalist. Please call with any questions
Original Note:
Today's Communication / Plan
-
some trending down of LFT's, no pain or fever
reviewed again with patient with nurse tata present she is oriented x 3 and still declines to proceed with ERCP and would like to eat
stressed again risk of holding ERCP-- bacteremia, sepsis and -- pt willing to accept risk
I discussed with daughter aware of patient decision
will arrange 3/4 week follow up with Dr. Rodriguez, Courtney, or Karen to again review -- family request telehealth-- message sent to office to call
also discussed possible reimaging during follow up if pt still declined procedure
repeat LFT's [address] [facility]
return to hospital for fever, chills, or abdominal pain
ok to resume Eliquis with close watch of hbg with anemia noted during admission
s/p IV iron during admission
cont bowel regiment
OP surgical consult to review for elvin with large stone noted on US-- but would need ERCP for stone first if do not pass
Assessment / Plan
-
Pt is an 83yo with hx HTN, hypothyroidism present for elective TKR 08/24 for severe osteoarthritis. She was noted with post-op change in mental status, transient WHIT with creat up to 1.1, anemia with drop in hbg to 7.2 and also elevated LFT's.
Baseline labs 08/04 with bili 1.1, AST 22, ALT 12, alk phos 118. Repeat today with bili 2.8, AST 59, ALT 46, alk phos 239. She completed US this am with concern for 1. Cholelithiasis without evidence of acute cholecystitis.2. Significant biliary
ductal dilation. Common bile duct measures 8 mm in diameter. 3. Multiple stones are seen within the common bile duct, measuring up to 1 cm in diameter.
-elevated LFT's
-CBD stones with ductal dilation- asymptomatic
-s/p TKR 08/24
-confusion/agitation post op
-post-op anemia
other medical problems:
-cholelithiasis
-transient WHIT
-hypothyroidism
-HTN with some elevated BP on admission
PLAN:
some trending down of LFT's, no pain or fever
reviewed again with patient with nurse payton present she is oriented x 3 and still declines to proceed with ERCP and would like to eat
stressed again risk of holding ERCP-- bacteremia, sepsis and -- pt willing to accept risk
I discussed with daughter aware of patient decision
will arrange 3/4 week follow up with Dr. Rodriguez, Courtney, or Karen to again review -- family request telehealth-- message sent to office to call
also discussed possible reimaging during follow up if pt still declined procedure
repeat LFT's [address] [facility]
return to hospital for fever, chills, or abdominal pain
ok to resume Eliquis with close watch of hbg with anemia noted during admission
s/p IV iron during admission
cont bowel regiment
OP surgical consult to review for elvin with large stone noted on US-- but would need ERCP for stone first if do not pass
Subjective
Subjective
Date of Service: August 31, 2023
pt still refuses ERCP, advancing diet, brown stools
Objective
Data Reviewed
Laboratory Data:
Laboratory Results
08/31/23 04:07
08/31/23 04:07
Laboratory Results
PT 13.7 Sec (11.4-14.6) 08/30/23 11:51
INR 1.07 08/30/23 11:51
Total Bilirubin 2.4 mg/dl (0.2-1.3) H 08/31/23 04:07
AST 36 U/L (14-36) 08/31/23 04:07
ALT 32 U/L (0-35) 08/31/23 04:07
Alkaline Phosphatase 198 U/L (38-126) H 08/31/23 04:07
Vital Signs and I&O:
Vital Signs
Temp Pulse Resp BP Pulse Ox
98.7 F 81 12 144/59 94
08/31/23 07:00 08/31/23 07:00 08/31/23 07:00 08/31/23 07:00 08/31/23 07:00
I&O
08/30/23 08/31/23 09/01/23
06:59 06:59 06:59
Intake Total 1460 / 1460 120 / 120
Output Total 2425 / 2425
Balance -965 / -965 120 / 120
Physical Exam
Physical Exam
HEENT: Anicteric and Moist mucous membranes
Cardiology: Normal Sinus Rhythm
Pulmonary: Clear
GI: Soft, Non Distended and Non Tender
Extremities: No Edema
Neuro: Non Focal
--- NOTE | 2023-08-31 09:53 | CM ---
Addendum entered by Cindy Joyce 08/31/23 10:30:
Met with patient at bedside to provide update.
Negative covid test from 08/29 was faxed to Sheryl at [facility].
Addendum entered by Cindy Joyce 08/31/23 10:15:
Message was received from Sheryl at [facility]. She states that they can accept patient today.
Report: [phone]

Call placed to daughter and provided update. She has no concerns.
Original Note:
Reviewed chart and held rounds with PT, OT and nursing. Met with patient at bedside and spoke with her daughter. Discussed discharge plans. The plan continues to be for patient to go to a SNF for rehab. [facility] is first choice, [facility] is
second.
Call placed to Sheryl at [facility]. Message left with request for return call.
[facility] Text sent to Swati at [facility] inquiring as to bed availability; will await response.
Medical necessity and transport forms completed.
--- NOTE | 2023-08-31 10:05 | W.PN.ORTHO ---
Today's Communication / Plan
-
D/c today since clinically stable.
Assessment
.
Distal Motor Intact: Yes
Dressing:
Clean, dry and intact.
Assessment:
R knee OA s/p R TKA 08/25/23 w/ Dr Jacques
DVT prophylaxis - Eliquis 2.5 mg PO x4 weeks post-surgery (ADR due ASA) upon d/c and b/l venous foot pumps
Change mental status - resolved - likely secondary to GA and opioid/lorazepam with underlying early dementia/possible sundowning - continue to minimize opioids - cognitive function currently at baseline
Acute post-op blood loss anemia w/ possible R knee hematoma - ecchymotic with large effusion - s/p 2 Units PRBCs 08/28 w/ Lasix in between units for better BP control and to prevent fluid overload - hgb stable at 11.1
WHIT - resolved w/ IVF, holding nephrotoxins - renal function at baseline
Hypothyroid - continue Levothyroxine - repeat TSH OP
HTN - continue Lisinopril upon d/c
Intermittent elevated transaminases due to CBD stones with ductal dilation - asymptomatic - pt refusing ERCP as suggested by GI - will advise OP f/u w/ GI for potential ERCP in future - pt aware of risks of holding ERCP and accepts these risks
Plan
.
Surgery / Date: R TKA w/ Dr Jacques 08/25/23
DVT Prophylaxis: Other (Eliquis )
Activity:
Out of bed.
PT/OT
Discharge Plan: SNF
Subjective
.
.:
Patient resting comfortably in her chair this AM.
R knee pain minimal w/ no current pain meds.
LFTs and Hgb stable this AM. Pt still refusing ERCP as suggested by GI. Diet advanced to low fat this AM.
Bed available at [facility] for d/c today.
Vital Signs and Labs
.
Vital Signs and Labs:
Lab Results
08/31/23 04:07
08/31/23 04:07
Temp Pulse Resp BP Pulse Ox
98.7 F 81 12 144/59 94
08/31/23 07:00 08/31/23 07:00 08/31/23 07:00 08/31/23 07:00 08/31/23 07:00
PT 13.7 Sec (11.4-14.6) 08/30/23 11:51
INR 1.07 08/30/23 11:51
Non-invasive Hgb result: 12.0
Physical Exam
-
HEENT: No pallor, cyanosis, or jaundice. Throat clear.
NECK: Supple. No JVD.
RESPIRATORY: Lungs clear to auscultation.
CVS: S1, S2 normal. RRR.�
ABDOMEN: Soft, non-tender. No distension.
EXTREMITIES: Mild post-op edema and bruising along b/l sides of R knee. Strength equal, no calf pain with palpation/dorsiflexion. Calves soft.
GHOST WRITER: AOx3. No focal deficits. biblical studies professor grossly intact
--- NOTE | 2023-08-31 10:24 | W.PN.UPDATE ---
Update Note
Progress Note Update
For billing purposes
--- NOTE | 2023-08-31 10:33 | W.DS.TRANS ---
DC Summary - Jacquard Loom Weaver
-
Discharge Instructions:
Sleep Apnea Risk Low
Discharge Diagnosis/Procedures R knee OA s/p R TKA w/ Dr Jacques 08/25/23
Diet Low Fat
Activity As tolerated,With Walker,With assistance
Driving Restrictions No driving
Bathing Restrictions OK to Shower
Blood Work TSH 12 weeks post-surgery, CBC and LFTs 09/07/23
Others Tests She will need Rxs when d/c home for Lisinopril
and Levothyroxine.
If able, repeat US abdomen in 1-2 weeks to see
if common bile duct stone passed.
Other Services PT,OT
Wound Care Leave dressing on until seen by surgeon's office
for follow-up 2 weeks post-surgery.
Instructions:
Stand-Alone Forms: Total Hip/Knee Replacement D/C
Changes to Home Medications: Yes
Discharge Medications:
DC Medications w/original date entered in [facility]
mupirocin 2 % topical ointment 1 applic intranasal BID #1 tube 08/05/23
famotidine 20 mg tablet 20 mg PO HS GI prophylaxis #30 tabs 08/29/23
levothyroxine 25 mcg tablet 25 mcg PO DAILY 08/29/23
magnesium hydroxide 400 mg/5 mL oral suspension (Milk of Magnesia) 30 ml PO HS PRN Constipation #1 mL 08/29/23
tramadol 50 mg tablet 25 mg (1/2 x 50 mg) PO Q6H PRN moderate-severe pain #10 tabs 08/29/23
Saccharomyces boulardii 250 mg capsule (Florastor) 250 mg PO DAILY #30 caps 08/31/23
apixaban 2.5 mg tablet (Eliquis) 2.5 mg PO BID #60 tabs 08/31/23
cefadroxil 500 mg capsule 500 mg PO DAILY #7 caps 08/31/23
docusate sodium 100 mg capsule 100 mg PO BID #30 caps 08/31/23
ferrous sulfate 325 mg (65 mg iron) tablet (FeroSul) 325 mg PO DAILY #30 tabs 08/31/23
lisinopril 10 mg PO DAILY ##0 08/31/23
sennosides 8.6 mg tablet (Senna Laxative) 17.2 mg (2 x 8.6 mg) PO BID #30 tabs 08/31/23
Home Medication Changes
famotidine 20 mg tablet 20 mg PO HS GI prophylaxis #30 tabs 08/29/23
magnesium hydroxide 400 mg/5 mL oral suspension (Milk of Magnesia) 30 ml PO HS PRN Constipation #1 mL 08/29/23
tramadol 50 mg tablet 25 mg (1/2 x 50 mg) PO Q6H PRN moderate-severe pain #10 tabs 08/29/23
Saccharomyces boulardii 250 mg capsule (Florastor) 250 mg PO DAILY #30 caps 08/31/23
apixaban 2.5 mg tablet (Eliquis) 2.5 mg PO BID #60 tabs 08/31/23
cefadroxil 500 mg capsule 500 mg PO DAILY #7 caps 08/31/23
docusate sodium 100 mg capsule 100 mg PO BID #30 caps 08/31/23
ferrous sulfate 325 mg (65 mg iron) tablet (FeroSul) 325 mg PO DAILY #30 tabs 08/31/23
sennosides 8.6 mg tablet (Senna Laxative) 17.2 mg (2 x 8.6 mg) PO BID #30 tabs 08/31/23
Pending Results: No
[2023-08-31] MEDS: D5/0.9% SODIUM CHLORIDE IV (12:18)
[2023-08-31 13:43] VITALS: BP 107/43
[2023-08-31] MEDS: FERRLECIT 110 MG IV (14:05)
== END 2023-08-31 16:09 | DRG 470 ==
LOC: 2 SOUTH 06:26
PROVIDERS: Hospitalist; Nurse Practitioner Adult Health; Physician Assistant; Physician Assistant Medical; Physician Assistant Surgical; ADMITTING PHYSICIAN Orthopaedic Surgery; CONSULT PHYSICIAN Internal Medicine; FAMILY PHYSICIAN Student in an Organized Health Care Education/Training Program
PROC: 0SRC0J9 Replacement of Right Knee Joint with Synthetic Substitute, Cemented, Open Approach (ICD-10-PCS; 2023-08-25)
PROC: 30233N1 Transfusion of Nonautologous Red Blood Cells into Peripheral Vein, Percutaneous Approach (ICD-10-PCS; 2023-08-29)
DX: M17.11 Unilateral primary osteoarthritis, right knee (principal); D62 Acute posthemorrhagic anemia; F05 Delirium due to known physiological condition; N99.0 Postprocedural (acute) (chronic) kidney failure; I10 Essential (primary) hypertension; R73.03 Prediabetes; K80.70 Calculus of gallbladder and bile duct without cholecystitis without obstruction; Z79.01 Long term (current) use of anticoagulants; Z91.199 Patient's noncompliance with other medical treatment and regimen due to unspecified reason
CPT/HCPCS: 36415; 70450; 73560; 76700; 80048; 80053; 80076; 82306; 82607; 82728; 83036; 83540; 83550; 84439; 84443; 85014; 85018; 85025; 85027; 85610; 86850; 86900; 86901; 86920; 87070; 87811; 93005; 97116; 97163; 97167; 97530; 97535; C1713; C1776; J2916; P9016

== ENCOUNTER 2023-09-26 14:48 | Emergency (ER) | payer MEDICARE, SELFPAY ==
[2023-09-26 14:54] VITALS: BP 172/88
[2023-09-26 15:19] LABS: % Basophils 0.3 % (0-2); % Eosinophils 0.9 % (0-6); % Immature Granulocytes 0.3 % (0-0.5); % Lymphocytes 14.8 % (20.5-51.1); % Monocytes 8.2 % (1.7-9.3); % Neutrophils 75.5 % (42.2-75.2); Absolute Eosinophils 0.1 10^3/uL (0-0.7); Absolute Lymphocytes 1.4 10^3/uL (1.2-3.4); Absolute Monocytes 0.8 10^3/uL (0.1-0.6); Absolute Neutrophils 7.3 10^3/uL (1.4-6.5); Hematocrit 40.2 % (37.0-47.0); Mean Corp Hgb Conc. 32.3 g/dL (33.0-37.0); Mean Corpuscular Hgb 31.2 pg (27.0-31.0); Mean Corpuscular Volume 96.4 fL (81.0-99.0); Nucleated Red Blood Cells % 0 %; Platelet Count 253 10^3/uL (130-400); Red Blood Cell Count 4.17 10^6/uL (4.20-5.40); Red Cell Dist. Width 15.2 % (11.5-14.5); White Blood Cell Count 9.6 10^3/uL (4.8-10.8)
[2023-09-26 15:32] LABS: ALT (SGPT) 11 U/L (0-35); AST (SGOT) 19 U/L (14-36); Albumin 4.4 g/dl (3.5-5.0); Alkaline Phosphatase 201 U/L (38-126); Blood Urea Nitrogen 22 mg/dl (7-17); Calcium 9.7 mg/dl (8.4-10.2); Carbon Dioxide 24 mmol/L (22-30); Chloride 106 mmol/L (98-107); Glucose 111 mg/dl (70-99); Potassium 4.6 mmol/L (3.5-5.1); Sodium 137 mmol/L (135-145); Total Bilirubin 0.9 mg/dl (0.2-1.3); Total Protein 7.1 g/dl (6.3-8.2); eGFR > 60.00
[2023-09-26 15:42] LABS: Troponin I < 0.012 ng/ml
[2023-09-26 15:50] LABS: Lipase 130 U/L (23-300)
--- NOTE | 2023-09-26 18:27 | ED.GENMED ---
History of Present Illness
General
Chief Complaint: Abdominal Pain
Source: patient
Exam Limitations: none
Time Seen by Provider: 09/26/23 18:02
Nursing documentation reviewed up to this point in time: agreed with
Travel History
Have you had any contact with someone who has COVID-19?: No
Do you have any symptoms of coronavirus? Fever > 100 degrees, chills, cough, shortness of breath, sore throat, loss of taste or smell, muscle aches, or headache?: No
History of Present Illness
History of Present Illness:
83 y/o F with h/o HTN, GERD. cholelithasis
Recent hospitalization 1 month ago for her total right knee complicated by acute blood loss anemia requiring transfusion as well as elevated transaminases secondary to what appeared to be a common bile duct stone with dilation on ultrasound but no
signs of cholecystitis, seen by GI and recommended to have ERCP but patient declined. She apparently did not tolerate anesthesia very well and was very afraid of doing another procedure. She is here for abdominal pain that began last evening that
felt like a discomfort in her upper abdomen that moved down into her lower abdomen and in waves. She says she thought it was almost like an indigestion type of feeling. She has been taking Celebrex for a week for her knee may be thinks that could
be the cause. She has not had any fever or chills, constipation, bloody stool, black stool, vomiting. But she did have a lack of appetite and only ate a piece of toast this morning and got pain that was slightly worse afterwards.
Patient was discharged from [facility] just 3 days ago after her knee replacement
Past History
Past History
ED Past Medical History: GERD, HTN and Other (WHIT, anemia, dementia)
ED Past Surgical History: Orthopedic
Social History
Tobacco: Non-smoker
Alcohol: None
Review of Systems
Review of Systems
Allergies reviewed?: Yes
All Other Systems: Not applicable
Phy Exam
Physical Exam
Physical Exam:
GENERAL: Alert , in no apparent distress, well-appearing
EYE: pupils equal and reactive
NECK: Supple
ENT: o/p clr, mmm.
CARDIAC: Regular rate and rhythm .
LUNGS: Clear breath sounds bilaterally, no acute respiratory distress, no wheezes/rales/rhonchi
ABDOMEN: Soft, without focal tenderness, negative Rashid sign no r/g, no cvat, normal bowel sounds
NEUROLOGICAL: Alert and oriented, no focal neuro deficits
SKIN: Warm and dry, skin intact.
MUSCULOSKELETAL: Minimal right lower extremity edema, trace, nonpitting, the knee itself has a closed incision without any erythema or drainage no significant effusion
PSYCH: Normal and appropriate interaction.
Course
Orders/Labs/Results
Orders:
Orders
09/26/23 14:56
Electrocardiogram (*1) Urgent
Reason for Study: Abdominal Pain
EKG- Treatment ONCE
09/26/23 15:05
Complete Blood Count/With Diff Urgent
Comprehensive Metabolic Panel Urgent
Lipase Urgent
Troponin I Urgent
09/26/23 18:25
Obstruct Series W/PA Chest [CR Obstruct Series W/pa Chest] Urgent
Comment:
Reason For Exam: abd pain
US Abdomen Complete/Upper Urgent
Comment:
Reason For Exam: upper abd pain, h/o cholelitihasis
Abnormal Lab Results
09/26/23
15:05
RBC 4.17 L 10^6/uL
(4.20-5.40)
MCH 31.2 H pg
(27.0-31.0)
MCHC 32.3 L g/dL
(33.0-37.0)
RDW 15.2 H %
(11.5-14.5)
MPV 12.0 H fL
(7.4-10.4)
Absolute Neuts (auto) 7.3 H 10^3/uL
(1.4-6.5)
Absolute Monos (auto) 0.8 H 10^3/uL
(0.1-0.6)
Neutrophils % 75.5 H %
(42.2-75.2)
Lymphocytes % 14.8 L %
(20.5-51.1)
BUN 22 H mg/dl
(7-17)
Glucose 111 H mg/dl
(70-99)
Alkaline Phosphatase 201 H U/L
(38-126)
09/26/23 15:05
09/26/23 15:05
Vital Signs
Initial and Last Documented VS:
Initial Vital Signs
Temp Pulse Resp BP Pulse Ox
97.9 F 92 16 172/88 98
09/26/23 14:54 09/26/23 14:54 09/26/23 14:54 09/26/23 14:54 09/26/23 14:54
Last Documented Vital Signs
Temp Pulse Resp BP Pulse Ox
97.9 F 62 19 174/70 96
09/26/23 14:54 09/26/23 21:42 09/26/23 21:42 09/26/23 21:42 09/26/23 21:42
MDM/Problems Addressed
Differential Diagnosis Includes:
cholelithiasis, choledocholithaisis, cholecystisi, GERD, PUD
MDM/Problems Addressed:
83 y/o F with h/o gerd, post op total R knee 1 mo ago
with known cholelithasisi with elevated transaminases, seen by GI during admission and recommedned for ERCP which pt declined due to problem
here with upper abd pain since last night which does wax and wane, pt has had pain worse with eating this morning
pt has had lack of appetite today but no fever, vomiting, diarrhea, constipatoin
the pain actually has much improved without treatment
they called pcp who recommended to come to the ER to be safe
pt has been home from [facility] for only 3 days post her rehab from [facility].
pt feels completely better now
her lfts are mostly improved, alk phos is about the same
repeat US sohows continues CBD distention but now measuring 14 mm from 8 mm
pt has stone in the cbd and gb
she has no signs of cholecystitis
wbc is normal
lipase normal
reassessed
pt alos had xray and had abd gas but no obstruction
indep reviewed by me
pt is very apprehensive about having surgery because of her post op anesthesia reaction and since pain is resolved, she is not agreeable to be admitted for ERCP as she was recommended previously by GI
she is aware of risks
daughter also in the room for the converation
d/w ed attending.
d/c home.
*Critical Care Note
Total Time (30-74mins, 75-104mins- exclusive of procedures): Not Applicable
ED Attending Note
-
Portions of this chart may have been created with voice recognition software.� Occasional wrong word or��sound alike� substitutions may have occurred due to the inherent limitations of voice recognition software.
Discharge Plan
Departure
Patient Disposition: Home (Routine Discharge)
Date of Disposition: 09/26/23
Time of Disposition: 21:30
Patient with high blood pressure during this ER visit?: Yes
Condition: Fair
Covid-19: Not Applicable
Discharge Problem:
Abdominal pain, Choledocholithiasis
Instructions: Gallstones (DC)
Prescriptions:
No Action
mupirocin 2 % ointment
1 applic intranasal BID Qty: 1 0RF
Patient Comments:
Patient applied this am 08/25/23
tramadol 50 mg tablet
25 mg PO Q6H PRN (Reason: moderate-severe pain) Qty: 10 0RF
Rx Instructions:
ongoing therapy
famotidine 20 mg tablet
20 mg PO HS Qty: 30 0RF
Rx Instructions:
post-op
magnesium hydroxide [Milk of Magnesia] 400 mg/5 mL suspension
30 ml PO HS PRN (Reason: Constipation) Qty: 1 0RF
levothyroxine 25 mcg Tablet
25 mcg PO DAILY
Rx Instructions:
daughter confirmed w/PCP on 08/29/23
docusate sodium 100 mg Capsule
100 mg PO BID Qty: 30 0RF
Rx Instructions:
Take twice a day while on Tramadol.
ferrous sulfate [FeroSul] 325 mg (65 mg iron) Tablet
325 mg PO DAILY Qty: 30 0RF
Rx Instructions:
Continue daily to help improve anemia
sennosides [Senna Laxative] 8.6 mg Tablet
17.2 mg PO BID Qty: 30 0RF
Rx Instructions:
Take twice a day while taking Tramadol.
Eliquis 2.5 mg tablet
2.5 mg PO BID Qty: 60 0RF
Rx Instructions:
Restart night of discharge and continue twice a day for 4 weeks post-surgery.
lisinopril
10 mg PO DAILY Qty: 0 0RF
Rx Instructions:
HOLD IF systolic blood pressure <130 while taking Tramadol.
cefadroxil 500 mg capsule
500 mg PO DAILY Qty: 7 0RF
Rx Instructions:
Take daily for 1 week upon discharge.
Saccharomyces boulardii [Florastor] 250 mg capsule
250 mg PO DAILY Qty: 30 0RF
Rx Instructions:
Take while on Cefadroxil
Referrals:
Toan Sharif MD [Family Provider] - Follow up in 2-3 days
Activity Restrictions/Additional Instructions:
Your ultrasound again showed that you have gallstones within your common bile duct and its dilated. You no signs of infection. You also had some constipation/bowel gas in your x-ray that could be the culprit of your abdominal pain however we felt
that we should admit you for further workup with an ERCP as you were offered previously but you would prefer to go home at this time. Please keep your appointment with the GI doctor next week. Return immediately for worsening pain, fever,
yellowing discoloration to the skin, vomiting, severe constipation or any concerns. You can try dose of MiraLAX once a day for 2 or 3 days in a row and continue Pepcid once a day to help protect her stomach.
Interventions
Interventions:
*Risk Screen - Suicide Last Done: 09/26/23 20:00
*General Assessment Last Done: 09/26/23 20:00
*Neglect/Abuse Screening Last Done: 09/26/23 20:00
ED- Fall Risk Assessment Last Done: 09/26/23 19:01
*ED COVID-19 Vaccine History Last Done: 09/26/23 20:00
*Nursing Disposition Last Done: 09/26/23 22:17
AE-Rakotm-Lwlkzatrgn Assessment Last Done: 09/26/23 19:01
Discharge Date and Time
Discharge Date/Time: 09/26/23 22:17
Print Language: MALAGASY
[2023-09-26 18:42] VITALS: BP 159/62
[2023-09-26 21:42] VITALS: BP 174/70
== END 2023-09-26 22:17 | disposition home or self-care (01) ==
LOC: EMR 14:48
PROVIDERS: Emergency Medicine; EMERGENCY PHYSICIAN Emergency Medicine; FAMILY PHYSICIAN Family Medicine
DX: R10.9 Unspecified abdominal pain (principal); K80.50 Calculus of bile duct without cholangitis or cholecystitis without obstruction; I10 Essential (primary) hypertension; K21.9 Gastro-esophageal reflux disease without esophagitis
CPT/HCPCS: 99285; 74022; 76700; 80053; 83690; 84484; 85025; 93005

== ENCOUNTER 2024-01-04 17:01 | Emergency (ER) | payer MEDICARE, SELFPAY ==
[2024-01-04] VITALS (7 sets, daily range): BP systolic 162–214; BP diastolic 60–91; PULSE 65–73; BMI 25.6
[2024-01-04 17:23] LABS: Hematocrit 38.1 % (37.0-47.0); Hemoglobin 13.1 g/dL (12.0-16.0); Mean Corp Hgb Conc. 34.4 g/dL (33.0-37.0); Mean Corpuscular Hgb 30.8 pg (27.0-31.0); Mean Corpuscular Volume 89.6 fL (81.0-99.0); Platelet Count 242 10^3/uL (130-400); Red Blood Cell Count 4.25 10^6/uL (4.20-5.40); Red Cell Dist. Width 13.7 % (11.5-14.5)
[2024-01-04 17:33] LABS: INR 0.98
[2024-01-04 17:34] LABS: APTT 28.2 Sec (23.4-35.0)
[2024-01-04 17:48] LABS: Troponin I < 0.012 ng/ml
[2024-01-04 17:52] LABS: ALT (SGPT) 12 U/L (0-35); AST (SGOT) 19 U/L (14-36); Albumin 4.3 g/dl (3.5-5.0); Alkaline Phosphatase 133 U/L (38-126); Blood Urea Nitrogen 22 mg/dl (7-17); Calcium 9.7 mg/dl (8.4-10.2); Carbon Dioxide 26 mmol/L (22-30); Chloride 105 mmol/L (98-107); Glucose 98 mg/dl (70-99); Potassium 4.4 mmol/L (3.5-5.1); Sodium 138 mmol/L (135-145); Total Bilirubin 0.7 mg/dl (0.2-1.3); Total Protein 6.6 g/dl (6.3-8.2); eGFR > 60.00
--- NOTE | 2024-01-04 18:11 | EDRN ---
Esther Raphael [employer] in room w/ pt at this time.
--- NOTE | 2024-01-04 18:37 | EDRN ---
During orthostatic VS pt was dizzy on sitting though it passed. pt stated it was her normal dizziness.
[2024-01-04 19:12] LABS: Urine Albumin Negative (Neg - Trace); Urine Bilirubin Negative (Negative); Urine Character Clear (Clear); Urine Color Yellow; Urine Glucose Negative (Negative); Urine Ketone Negative (Negative); Urine Leukocyte Trace (Negative); Urine Nitrite Negative (Negative); Urine Occult Blood Negative (Negative); Urine Specific Gravity 1.005 (<1.030); Urine Urobilinogen Negative (Neg - 1+)
[2024-01-04 19:24] LABS: Urine Red Blood Cell 0-2 /HPF (0-2)
[2024-01-04] MEDS: ZESTRIL 10 MG PO (19:44)
[2024-01-04] MEDS: ANTIVERT 12.5 MG PO (19:46)
--- NOTE | 2024-01-04 19:53 | ED.CVA ---
History of Present Illness
General
Chief Complaint: CVA/TIA Symptoms
Source: patient and family
Exam Limitations: none
Time Seen by Provider: 01/04/24 17:37
Nursing documentation reviewed up to this point in time: agreed with
Onset of Stroke Symptoms
Onset of symptoms known: No
Time pt last seen normal is known: No
History of Present Illness
History of Present Illness:
Patient to ED with complaint of elevated BP, dizziness, difficulty finding words. States last PM she had an episode for approx 1 minute where she could not find her words. Symptoms resolved quickly without intervention. No associated symptoms.
Today she noted her BP was elevated. Has been experiencing dizziness intermittently for some time with position changes. Brought to ED by daughter for eval.
Past History
Past History
ED Past Medical History: GERD, HTN and Other (WHIT, anemia, dementia)
ED Past Surgical History: Orthopedic
Social History
Tobacco: Non-smoker
Alcohol: None
Review of Systems
Review of Systems
Allergies reviewed?: Yes
All Other Systems: ROS reviewed and negative except as documented in HPI and ROS
Constitutional: Reports no symptoms
EENT: Reports no symptoms
Respiratory: Reports no symptoms
Cardiac: Reports no symptoms
ABD/GI: Reports no symptoms
: Reports no symptoms
Musculoskeletal: Reports no symptoms
Skin: Reports no symptoms
Neurological: Reports dizzy
Psychiatric: Reports no symptoms
Phy Exam
General Physical Exam
General Presentation: well appearing and no apparent distress
General age: appears stated age
General Skin: warm and dry
General Habitus: normal
Cardiovascular Exam
Cardiovascular Exam: regular rate/rhythm and no edema
Neurological Exam
Neurological Exam: alert, oriented x3, CN II-XII intact, no motor deficits, no sensory deficits, speech normal and normal gait
NIH Stroke Score
Level of Consciousness: 0 - Alert
LOC questions: 0-Answers both correctly
LOC Commands: 0-Performs both correctly
Best Gaze: 0-Normal
Visual Bai: 0=Normal, no visual loss
Facial palsy: 0=Normal, symmetrical
Motor - Right Arm: 0=No drift 10 seconds
Motor - Left Arm: 0=No drift 10 seconds
Motor - Right Le-No drift 5 seconds
Motor - Left Le-No drift 5 seconds
Limb Ataxia: 0-Absent
Sensation: 0-Normal
Best Language: 0-No aphasia
Dysarthria: 0-Normal
Extinction and Inattention: 0-No abnormality
Total Score:: 0
Musculoskeletal Exam
Musculoskeletal Exam: full ROM and neuro vasc intact
Skin Exam
Skin Exam: normal color, warm/dry and no rash
Psychiatric Exam
Psychiatric Exam: normal mood/affect
Course
Orders/Labs/Results
Orders:
Orders
01/04/24 17:05
Electrocardiogram (*1) Urgent
Reason for Study: Other
Other Reason for Exam: Possible Stroke
01/04/24 17:[address] [CT Head W/o Iv Contrast] Urgent
Comment:
Reason For Exam: TIA?
EKG- Treatment ONCE
01/04/24 17:16
Comprehensive Metabolic Panel Urgent
PTT Urgent
Prothrombin Time Urgent
Troponin I Urgent
01/04/24 17:17
CBC/No Diff [Complete Blood Count/No Diff] Urgent
01/04/24 18:26
Orthostatic VS- Treatment ONCE
01/04/24 19:02
Urinalysis Reflex To Culture Urgent
Date Specimen was Collected: 01/04/24
Time Specimen was Collected: 19:00
Urine Microscopic Reflex Cult Urgent
01/04/24 19:27
Lisinopril [Zestril] 10 mg PO NOW STA
01/04/24 19:40
Meclizine [Antivert] 12.5 mg PO NOW STA
Meclizine [Antivert] 25 mg .ROUTE .STK-MED ONE
Abnormal Lab Results
01/04/24 01/04/24 01/04/24
17:16 17:17 19:02
MPV 12.0 H fL
(7.4-10.4)
BUN 22 H mg/dl
(7-17)
Alkaline Phosphatase 133 H U/L
(38-126)
Leukocyte Esterase Rfl Trace A
(Negative)
01/04/24 17:17
01/04/24 17:16
Vital Signs
Initial and Last Documented VS:
Initial Vital Signs
Temp Pulse Resp BP Pulse Ox
98.3 F 66 16 214/91 99
01/04/24 17:03 01/04/24 17:03 01/04/24 17:03 01/04/24 17:03 01/04/24 17:03
Last Documented Vital Signs
Temp Pulse Resp BP Pulse Ox
98.3 F 65 18 188/74 96
01/04/24 17:03 01/04/24 20:45 01/04/24 20:45 01/04/24 20:45 01/04/24 20:45
*Radiology
Radiology exam reviewed: radiology read reviewed
*Pulse Oximetry
Patient hypoxic: no
*Critical Care Note
Total Time (30-74mins, 75-104mins- exclusive of procedures): Not Applicable
ED Attending Note
-
Portions of this chart may have been created with voice recognition software.� Occasional wrong word or��sound alike� substitutions may have occurred due to the inherent limitations of voice recognition software.
Discharge Plan
Departure
Patient Disposition: Home (Routine Discharge)
Date of Disposition: 01/04/24
Time of Disposition: 19:50
Patient with high blood pressure during this ER visit?: No
Condition: Good
Covid-19: Not Applicable
Discharge Problem:
Dizziness
Instructions: High Blood Pressure ED, Dizziness
Prescriptions:
New
meclizine 12.5 mg tablet
12.5 mg PO TID PRN (Reason: dizziness) Qty: 20 0RF
No Action
mupirocin 2 % ointment
1 applic intranasal BID Qty: 1 0RF
Patient Comments:
Patient applied this am 08/25/23
tramadol 50 mg tablet
25 mg PO Q6H PRN (Reason: moderate-severe pain) Qty: 10 0RF
Rx Instructions:
ongoing therapy
famotidine 20 mg tablet
20 mg PO HS Qty: 30 0RF
Rx Instructions:
post-op
magnesium hydroxide [Milk of Magnesia] 400 mg/5 mL suspension
30 ml PO HS PRN (Reason: Constipation) Qty: 1 0RF
levothyroxine 25 mcg Tablet
25 mcg PO DAILY
Rx Instructions:
daughter confirmed w/PCP on 08/29/23
docusate sodium 100 mg Capsule
100 mg PO BID Qty: 30 0RF
Rx Instructions:
Take twice a day while on Tramadol.
ferrous sulfate [FeroSul] 325 mg (65 mg iron) Tablet
325 mg PO DAILY Qty: 30 0RF
Rx Instructions:
Continue daily to help improve anemia
sennosides [Senna Laxative] 8.6 mg Tablet
17.2 mg PO BID Qty: 30 0RF
Rx Instructions:
Take twice a day while taking Tramadol.
Eliquis 2.5 mg tablet
2.5 mg PO BID Qty: 60 0RF
Rx Instructions:
Restart night of discharge and continue twice a day for 4 weeks post-surgery.
lisinopril
10 mg PO DAILY Qty: 0 0RF
Rx Instructions:
HOLD IF systolic blood pressure <130 while taking Tramadol.
cefadroxil 500 mg capsule
500 mg PO DAILY Qty: 7 0RF
Rx Instructions:
Take daily for 1 week upon discharge.
Saccharomyces boulardii [Florastor] 250 mg capsule
250 mg PO DAILY Qty: 30 0RF
Rx Instructions:
Take while on Cefadroxil
Referrals:
Sumaya Wise MD, Resident [Family Provider] - Follow up in 2-3 days
Activity Restrictions/Additional Instructions:
Return to the emergency department immediately for any changes in/worsening of your symptoms.
Interventions
Interventions:
*Risk Screen - Suicide Last Done: 01/04/24 17:03
*General Assessment Last Done: 01/04/24 18:18
*Neglect/Abuse Screening Last Done: 01/04/24 17:03
ED- Fall Risk Assessment Last Done: 01/04/24 18:18
*ED COVID-19 Vaccine History Last Done: 01/04/24 18:18
*Nursing Disposition Last Done: 01/04/24 21:04
ED- Pulmonary Assessment Last Done: 01/04/24 18:24
ED- Neurological Assessment Last Done: 01/04/24 18:24
ED- Cardiac Assessment Last Done: 01/04/24 18:27
ED Swallowing Screen Last Done: 01/04/24 18:24
Discharge Date and Time
Discharge Date/Time: 01/04/24 21:05
Print Language: ESTONIAN
== END 2024-01-04 21:05 | disposition home or self-care (01) ==
LOC: EMR 17:01
PROVIDERS: Emergency Medicine; Nurse Practitioner; EMERGENCY PHYSICIAN Emergency Medicine; FAMILY PHYSICIAN Student in an Organized Health Care Education/Training Program
DX: R42 Dizziness and giddiness (principal); R41.0 Disorientation, unspecified; I10 Essential (primary) hypertension; K21.9 Gastro-esophageal reflux disease without esophagitis; F03.90 Unspecified dementia, unspecified severity, without behavioral disturbance, psychotic disturbance, mood disturbance, and anxiety; M19.90 Unspecified osteoarthritis, unspecified site; E03.9 Hypothyroidism, unspecified; Z87.891 Personal history of nicotine dependence; Z79.01 Long term (current) use of anticoagulants; Z88.6 Allergy status to analgesic agent; Z91.011 Allergy to milk products
CPT/HCPCS: 99284; 70450; 80053; 81003; 81015; 84484; 85027; 85610; 85730; 93005

== ENCOUNTER → 2024-05-18 14:17 | Outpatient (REF) | payer MEDICARE, SELFPAY ==
[2024-05-18 16:37] LABS: TSH 8.82 uIU/ml (0.47-4.68)
[2024-05-18 17:12] LABS: Folate 15.7 ng/ml (2.76-20); Vitamin B12 368 pg/ml (239-931)
== END ==
LOC: RAD 14:17
PROVIDERS: ATTENDING PHYSICIAN Internal Medicine Cardiovascular Disease; FAMILY PHYSICIAN Student in an Organized Health Care Education/Training Program
DX: G45.9 Transient cerebral ischemic attack, unspecified (principal); R42 Dizziness and giddiness; I10 Essential (primary) hypertension; E03.9 Hypothyroidism, unspecified; F03.90 Unspecified dementia, unspecified severity, without behavioral disturbance, psychotic disturbance, mood disturbance, and anxiety
CPT/HCPCS: 82607; 82746; 84425; 84443; 93880

== ENCOUNTER → 2024-05-22 14:48 | Outpatient (REF) | payer MEDICARE, SELFPAY | LOC: RCS 14:48 | PROVIDERS: ATTENDING PHYSICIAN Internal Medicine Cardiovascular Disease | DX: R42 Dizziness and giddiness (principal); G45.9 Transient cerebral ischemic attack, unspecified | CPT/HCPCS: 93306 ==

== ENCOUNTER → 2024-06-19 15:01 | Outpatient (REF) | payer MEDICARE, SELFPAY | LOC: MRI 3T 15:01 | PROVIDERS: ATTENDING PHYSICIAN Internal Medicine Cardiovascular Disease | DX: G45.9 Transient cerebral ischemic attack, unspecified (principal); R42 Dizziness and giddiness | CPT/HCPCS: 70553; A9575 ==

== ENCOUNTER → 2024-07-11 15:27 | Outpatient (REF) | payer MEDICARE, SELFPAY ==
[2024-07-11 16:44] LABS: Blood Urea Nitrogen 13 mg/dl (7-17); Calcium 9.7 mg/dl (8.4-10.2); Carbon Dioxide 27 mmol/L (22-30); Chloride 102 mmol/L (98-107); Glucose 96 mg/dl (70-99); Potassium 4.6 mmol/L (3.5-5.1); Sodium 135 mmol/L (135-145); eGFR > 60.00
== END ==
LOC: REG 15:27
PROVIDERS: ATTENDING PHYSICIAN Internal Medicine Cardiovascular Disease
DX: I10 Essential (primary) hypertension (principal)
CPT/HCPCS: 36415; 80048

== ENCOUNTER → 2024-09-05 15:18 | Outpatient (REF) | payer MEDICARE, SELFPAY ==
[2024-09-05 16:24] LABS: Blood Urea Nitrogen 13 mg/dl (7-17); Calcium 9.7 mg/dl (8.4-10.2); Carbon Dioxide 26 mmol/L (22-30); Chloride 105 mmol/L (98-107); Glucose 92 mg/dl (70-99); Potassium 4.6 mmol/L (3.5-5.1); Sodium 142 mmol/L (135-145); eGFR > 60.00
== END ==
LOC: REG 15:18
PROVIDERS: ATTENDING PHYSICIAN Internal Medicine Cardiovascular Disease; FAMILY PHYSICIAN Student in an Organized Health Care Education/Training Program
DX: I10 Essential (primary) hypertension (principal)
CPT/HCPCS: 36415; 80048